=== PATIENT | male | born 1980 | race Caucasian/White ===

== ENCOUNTER 2024-12-02 01:16 | Inpatient (IN) | payer BC ==
[~2024-12-02] VITALS: Ht 172.7 cm; Wt 78.8 kg
--- NOTE | 2024-12-02 01:30 | Physician Documentation ---
History of Present Illness ~ General Chief Complaint: General Stated Complaint: TRANSFER Time Seen by MD: 01:30 History of Present Illness Initial Comments Patient presents to the emergency room for evaluation of acute kidney injury. Baseline kidney indices reported to be a creatinine of a proximally one that has found to have a creatinine of 4.5 today. He was recently placed on some Bactrim that has also started injection IVIG for common variable immunodeficiency. Medication Reconciliation Allergies: Coded Allergies: azithromycin (Verified Allergy, Severe, HIVES, 12/02/24) Review of Systems ROS All review of systems negative except as per HPI Physical Exam Physical Exam Vital Signs: Temperature: 97.6, Source: Temporal, Heart Rate: 80, Respiratory Rate: 18, BP: 133/79, Pulse Oximetry: 99, Weight: 78.800 Oxygen Flow Rate: 0 Physical Exam General: Patient is awake, alert, oriented x4 in no acute distress and well appearing.~ Head: Normocephalic and atraumatic. Eyes: Conjunctival normal. EOMI. PERRL. ENT: Mucous membranes moist. Neck: Supple, trachea is midline. Chest: Clear to auscultation bilaterally without rales, rhonchi, or wheezes. There is no accessory muscle use or retractions. Cardiac: RRR without murmurs, gallops, or rubs. Abd: Soft, nondistended, nontender, with normoactive bowel sounds. No guarding, rebound, or rigidity. Progress Results/Orders Results/Orders Orders - FRANCISCO SMITH MD Urinalysis, Cult If Indicated (12/02/24 01:26) Hcg, Ur Ql (12/02/24:26) BMP (12/02/24 01:26) Lipase (12/02/24:26) CMP (12/02/24 01:26) Page Hospitalist (12/02/24 01:55) Fill Out Med Reconciliation (12/02/24 01:55) Hgb A1c (12/02/24 02:12) Lipid Panel (12/02/24 02:12) MG (12/02/24 02:12) Osmolality (12/02/24 02:12) PBNP (12/02/24 02:12) PHOS (12/02/24 02:12) Completed Orders - FRANCISCO SMITH MD Cbc/Diff (12/02/24 01:26) Vital Signs 12/02/24 12/02/24 01:19 01:38 Temp 97.6 Pulse 80 Resp 18 14 B/P (MAP) 133/79 Pulse Ox 99 O2 Flow Rate 0 Laboratory Tests Test 12/02/24 02:12 White Blood Count 2.4 L Red Blood Count 2.85 L Hemoglobin 8.2 L Hematocrit 23.9 L Mean Corpuscular Volume 84.0 Mean Corpuscular Hemoglobin 28.9 Mean Corpuscular Hemoglobin Concent 34.4 Red Cell Distribution Width 16.5 H Platelet Count 78 L Mean Platelet Volume 7.7 Neutrophils (%) (Auto) 62.9 Lymphocytes (%) (Auto) 24.1 Monocytes (%) (Auto) 11.4 Eosinophils (%) (Auto) 1.1 Basophils (%) (Auto) 0.5 Neutrophils # (Auto) 1.5 L Lymphocytes # (Auto) 0.6 L Monocytes # (Auto) 0.3 Eosinophils # (Auto) 0.0 Basophils # (Auto) 0.0 CBC Comment Sodium Level 140 Potassium Level 4.3 Chloride Level 105 Carbon Dioxide Level 28.2 Anion Gap 7 L Blood Urea Nitrogen 51 H Creatinine 4.65 H Estimated GFR/1.73 m2 10 BUN/Creatinine Ratio 11.0 Glucose Level 113 H Calcium Level 10.4 H Total Bilirubin 0.4 Aspartate Amino Transf (AST/SGOT) 17 Alanine Aminotransferase (ALT/SGPT) 32 Alkaline Phosphatase 132 H Total Protein 5.5 L Albumin 3.0 L Globulin 2.5 L Albumin/Globulin Ratio 1.2 Lipase 38 Chemistry Comments Medical Decision Making Additional information obtaine: old records Findings Patient presents to the emergency room as a transfer from [facility] for acute kidney injury. That has thought that his kidney injury is secondary to IVIG which she started recently. I have spoken with mail handler equipment operator, Dr. Yousif, who is aware of patient. Differential Diagnosis Medication reaction, acute kidney injury, dehydration, toxic ingestion Departure Admitted to Inpatient Unit: yes, to hospitalist Impression: Primary Impression: Acute kidney injury Additional Impression: Common variable immunodeficiency (CVID) Condition: Guarded Referrals: NO PRIMARY CARE PROVIDER (PCP) Signature Scribe Signature: No scribe Attestation: The note accurately reflects work and decisions made by me.Francisco Smith MD 12/02/24 01:55 FRANCISCO SMITH MD Dec 02, 2024 01:30
[2024-12-02 02:30] LABS: MEAN PLATELET VOLUME 7.7 FL (7.4-10.4); RED CELL DISTRIBUTION WIDTH 16.5 % (11.5-14.5)
[2024-12-02 02:55] LABS: CREATININE 4.65 MG/DL (0.40-0.90); TOTAL CARBON DIOXIDE 28.2 MMOL/L (24-32); eCRCL 15 ML/MIN; eGFR 10 ML/MIN
[2024-12-02] MEDS ORDERED: magnesium sulf-water 4G/100mL 100 ML IV PRN (03:30)
[2024-12-02] MEDS ORDERED: potassium Cl 40MEQ/1/2NS 520ml 520 ML IV PRN (03:30)
[2024-12-02] MEDS: normal saline 1000ml 1,000 ML IV SCH (03:30)
[2024-12-02] MEDS ORDERED: ondansetron/PF 4mg/2ml inj IV PRN (03:30)
[2024-12-02] MEDS: normal saline 1000ml 1,000 ML IV ONE (03:30)
[2024-12-02] MEDS ORDERED: potassium Cl 20 mEq SR tablet PO PRN ×2 (03:30)
[2024-12-02] MEDS ORDERED: magnesium Cl slow-release 64mg tablet PO PRN (03:30)
[2024-12-02] MEDS ORDERED: magnesium sulf-water 2g/50mL 50 ML IV PRN (03:30)
[2024-12-02] MEDS ORDERED: magnesium hydroxide 30ml (MOM) UD suspension PO PRN (03:30)
[2024-12-02] MEDS ORDERED: mag hydrox/Alum hydrox/simeth 30ml oral suspension PO PRN (03:30)
--- NOTE | 2024-12-02 03:48 | HISTORY AND PHYSICAL-Residence ---
History & Physical Providers to CC Resident Creating Document: RANDAL BARAKAT, RES CC: CL HENRY MD ~ History of Present Illness Reason for Admit\Complaint: Acute kidney injury History of Present Illness 44-year-old male patient with past history of common variable immunodeficiency, splenomegaly, pancytopenia, diffuse lymphadenopathy and GLILD(Granulomatous Lymphocytic Interstitial Lung Disease), presented to the ED after critical increase in his creatinine as per recent lab report. Creatinine was elevated 4.65 post IgG transfusion one week ago. As per patient's history and reports from [facility] Patient stated that all this started about 10 years ago when he noticed splenomegaly went to [facility] where he was noted to have severely low platelet count. They did a full workup and suspected Hodgkin's lymphoma but was not confirmed. 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 Imaging was done which revealed lymphadenopathy and splenomegaly Due to suspicion for potential Hodgkin's lymphoma PET scan was performed.Lung biopsy was performed in July 2024 which was negative for cancer and silicosis. Patient has a history of hypogammaglobulinemia with low IgG IgA and IgM levels, specific antibody testing and flow cytometry to evaluate lymphocyte subsets were performed and the patient was consistent with granulomatous lymphocytic interstitial lung disease patient was started on a prednisone taper for 4-8 weeks with Bactrim for Pneumocystis prophylaxis and repeat CT was planned. Patient stated that he experiences fluctuating splenomegaly associated with dizziness and nausea particularly when the spleen is enlarged. Patient was initiated on IgG transfusions for his hypogammaglobulinemia received his 1st transfusion one week ago this was for about 6 hours and a repeat kidney function tests post that showed a elevated creatinine Patient also history of thrombocytopenia and bruising he associates with splenomegaly. Patient also stated that he does feel significant fatigue. Reports gathered from [place], [place]: 10/20/2024 CBC with differential notable for mild anemia hemoglobin of 11.5, absolute lymphocyte count decreased to 840, platelet count 62. Flow cytometry shows decrease CD3 cells, decreased absolute NK, B-cells, IgA reduced at 17, IgG decreased at 375, IgM decreased at 34. IgE undetectable. CH 50 normal, C3 and C4 normal Pulmonary function test: FEV1 reduced at 68% of predicted. FEV1 by FVC ratio reduced at 81% of predicted(65%). Diffusion capacity mildly reduced at 72%. We will spirometry consistent with mild obstruction with a significant response to bronchodilators with an increase of 260 mL in the FEV1. Exhaled nitric oxide normal. Patient is currently following up with [facility], he has a heme oncologist in [place] as well for his transfusion. 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 No sore throat, epistaxis, tinnitus Cardiovascular: No chest pain/discomfort, palpitations, syncope. no pedal edema Respiratory: No sob, cough,hemoptysis Gastrointestinal: No abdominal pain, nausea, vomiting. No diarrhea, melena. Genitourinary: No frquency, urgency, incontinence, nocturia. No dysuria, hematuria Musculoskeletal: Normal, no pains Endocrine: No fatigue, polydipsia, polyuria. No heat or cold intolerance Neurologic: No headache, vertigo. No weakness, numbness or tingling of extremities Psychiatric: No hallucinations/delusions, no anhedonia, no suicidal ideation Hematologic: No bruises Exam Vitals: Vital Signs Date Time Temp Pulse Resp B/P (MAP) Pulse Ox O2 Delivery O2 Flow Rate FiO2 12/02/24 01:38 14 12/02/24 01:19 97.6 80 99 0 General: General: Awake, oriented to person, place and time HEENT: Conjunctive are pale, sclerae clear, no icterus, pupil is equal in both sides, reactive to light, no ear discharge, no pharyngeal erythema or an edema. Neck: Supple, no JVD, no lymphadenopathy and thyromegaly. Chest: Decreased air entry in both lung, no breath sounds heard in right basilar region, no additional sounds no rhonchi no wheezing at the moment. Multiple scar noted on right side of the chest post surgical resection of lung Cardiovascular: S1-S2 regular sinus rhythm and, regular rate, no gallops, no rubs, no murmurs Abdomen: Splenomegaly noted. No visible peristalsis, Bowel sounds present on auscultation, soft, no tenderness, no guarding, no rigidity. Extremities: No obvious deformities, no pitting edema bilaterally, capillary refill intact, peripheral pulsations are intact on both sides. Nicotine stained fingertips Neurologic: Mental status: alert and conscious, oriented to place, person and time, preserved memory, normal speech. Cranial nerves I-XII: Normal. Motor system: Preserved power, coordination, no evidenced involuntary movements, strength 5/5 in four extremities. 2+ deep tendon reflexes in biceps, triceps, quadriceps. Negative Babinski. Cerebellar: No nystagmus, dysdiadochokinesia, normal [id number] testing. Musculoskeletal: No joint swelling, deformities, inflammations, and no scoliosis and back tenderness Skin: Warm and dry. Dry oral mucosa. Diagnostic Data Last Recorded Lab Results: 12/02/2421112/02/24211 Counseling Services Smoking & Tobacco Cessation: 3-10 Minutes (Discussed smoking cessation with the patient including the risk continued smoking with the patient including: lung cancer, stroke, heart attack, poor wound healing, increase in facial drinking, risk of MRSA skin infections.) Advance Care Planning Advanced Care plannin - 30 Minutes (I spent 17 minutes discussing advanced care planning/resuscitative methods patient decided he wanted to be full code) Additional Plan Acute kidney injury most likely intrarenal 2/2 IgG transfusion/Bactrim use Patient's creatinine is elevated 4.65 post IgG transfusion for his common variable immunodeficiency one week ago Prior to this patient was also on Bactrim for the last one week,plan is to change to atovaquone as per recomendations from [facility]. With respect to IV IgG therapy patient has requested his insurance for an approval of SQ IgG Initiated the patient on 1 L normal saline bolus and 100 mL/hour normal saline Ordered urine lytes, renal ultrasound Strict input and output monitoring As per ED physician Luis, executive personal assistant Dr. Yousif is aware of the patient Nephrology consult in the a.m. Common variable immunodeficiency-GLILD: Patient has been initiated on prednisone taper 20 mg for 15 days, Patient did not have his prednisone dose yesterday, please continue prednisolone once med rec is done Patient has mild shortness of breath for which he uses Symbicort inhaler Continue Symbicort inhaler 80/4.5, two puffs every 4 hours max 12 puffs per day(has a recommended by his deputy court clerk) once med rec is done Thrombocytopenia with splenomegaly Possibly secondary to platelet sequestration Patient has intermittent splenomegaly with thrombocytopenia Continue to monitor platelet count and bruising Pancytopenia Possibly secondary to hypersplenism Hemoglobin 8.2, RBC 2.85, WBC 2.4 Continue to closely monitor possible transfusion if hemoglobin drops below seven Hypertension New patient's home medication lisinopril 5 mg once med rec is done Code Status: Full code DVT Prophylaxis: SCD Lines/Tubes: PIV Nutrition: Renal diet PT:yes Prognosis: Guarded Disposition: Follow up with urine lytes, nephrology consult in the a.m. patient recently got blood workup done from [facility], please obtain those if possible Randal Barakat MD Internal medicine resident,PGY-1 Plan reviewed with bedside team. Patient seen through remote audiovisual assessment through HIPAA compliant setup. All labs, flowsheets, and images reviewed Cumulative nonprocedural care time spent in directed patient care = 30 min Date of Service: Dec 02, 2024 Billing Provider: CL HENRY MD, JAHNAVI, RES Dec 02, 2024 03:48 CL HENRY MD Dec 02, 2024 07:36
[2024-12-02] MEDS ORDERED: morphine 4 MG/ML inj SYRINge IV PRN (03:50)
[2024-12-02 04:05] LABS: INR 1.0 INR
[2024-12-02 04:11] LABS: APTT 22 SECONDS (22-32)
[2024-12-02 04:15] LABS: OSMOLALITY 309 MOSM/K (280-300)
[2024-12-02 04:26] LABS: CHOL/HDL RATIO 6.2 (0.00-4.99); LDL CHOLESTEROL 108 MG/DL (50-100); PHOSPHORUS 5.3 MG/DL (2.3-4.5); PRO BRAIN NATRIURETIC PEPTIDE 233 PG/ML (0-125)
[2024-12-02] MEDS ORDERED: PRED5TAB PO (05:22)
[2024-12-02] MEDS ORDERED: PANT40SU2 PO (05:24)
[2024-12-02] MEDS ORDERED: LISI2.5T89 PO (05:24)
[2024-12-02] MEDS ORDERED: [UNRECOGNIZED DRUG - CODE] PO (05:27)
[2024-12-02] MEDS: K and/or MAG REPLACEMENT MC SCH (07:33)
[2024-12-02] MEDS: docusate sod 100mg capsule PO SCH (07:33)
--- NOTE | 2024-12-02 08:22 | CONSULTATION REPORT ---
Consult Providers to CC ~ History of Present Illness Primary Medical Doctor: Francisco Smith MD Reason for Admit\Complaint: RONEL, recent IV Ig use History of Present Illness I have been requested to do renal consult for this 44/M that presents with pancytopenia, CLILD (Granulomatous Lymphocytic Interstitial Lung Disease) with CVID (Common Variable Immunodeficiency) that presented to the ED after critical increase in his creatinine as per recent lab report. Creatinine was elevated 4.65 post IgG transfusion one week ago. The spoke to me and the resident PGY-1 working with me, that he had a jump in Serum creatinine to 2.6 as November 13, 2024, earlier it used to 1.2. He received iVIG only after November 14. From the resident's wonderful assimilation of the PMHx: As per patient's history and reports from [facility] Patient stated that all this started about 10 years ago when he noticed splenomegaly when he went to [facility] where he was noted to have severely low platelet count. They did a full workup and suspected Hodgkin's lymphoma but was not confirmed. 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 Imaging was done which revealed lymphadenopathy and splenomegaly. Due to suspicion for potential Hodgkin's lymphoma PET scan was performed.Lung biopsy was performed in July 2024 which was negative for cancer and silicosis. Patient has a history of hypogammaglobulinemia with low IgG IgA and IgM levels, specific antibody testing and flow cytometry to evaluate lymphocyte subsets were performed and the patient was consistent with granulomatous lymphocytic interstitial lung disease patient was started on a prednisone taper for 4-8 weeks with Bactrim for Pneumocystis prophylaxis and repeat CT was planned. Patient stated that he experiences fluctuating splenomegaly associated with dizziness and nausea particularly when the spleen is enlarged. Patient was initiated on IgG transfusions for his hypogammaglobulinemia received his 1st transfusion one week ago this was for about 6 hours and a repeat kidney function tests post that showed a elevated creatinine Patient also history of thrombocytopenia and bruising he associates with splenomegaly. Patient also stated that he does feel significant fatigue. Reports gathered from [place], [place]: 10/20/2024 CBC with differential notable for mild anemia hemoglobin of 11.5, absolute lymphocyte count decreased to 840, platelet count 62. Flow cytometry shows decrease CD3 cells, decreased absolute NK, B-cells, IgA reduced at 17, IgG decreased at 375, IgM decreased at 34. IgE undetectable. CH 50 normal, C3 and C4 normal Pulmonary function test: FEV1 reduced at 68% of predicted. FEV1 by FVC ratio reduced at 81% of predicted(65%). Diffusion capacity mildly reduced at 72%. We will spirometry consistent with mild obstruction with a significant response to bronchodilators with an increase of 260 mL in the FEV1. Exhaled nitric oxide normal. Patient is currently following up with [facility], he has a heme oncologist in [place] as well for his transfusion. 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 Allergies: Coded Allergies: azithromycin (Verified Allergy, Severe, HIVES, 12/02/24) Home Medications Home Medications Active Reported Mepron (Atovaquone) 750 Mg/5 Ml Oral.susp 750 Mg PO DAILY Protonix (Pantoprazole Sodium) 40 Mg Suspdr.pkt 40 Mg PO DAILY Zestril (Lisinopril) 2.5 Mg Tablet 2 Tab PO DAILY 30 Days Prednisone* (Prednisone) 5 Mg Tablet 4 Tab PO DAILY Past Medical History Past Medical History Common variable immune disease Hypertension Diffuse lymphadenopathy Pancytopenia GLILD Past Surgical History Surgical History Comment Right lung basal partial resection Past Social History Social History Comment Patient drinks about six beers a week Patient chews nicotine powder Patient denies any other history of illicit drug use Exam Vitals: Vital Signs Date Time Temp Pulse Resp B/P (MAP) Pulse Ox O2 Delivery O2 Flow Rate FiO2 12/02/24 06:53 63 18 104/61 (75) 100 0 12/02/24 01:19 97.6 General: Vital Signs: As above General: Normal body habitus, no acute distress. Skin: No rashes, lumps, ulcers, blisters, purpura or petechiae HEENT: Anicteric sclera, LOTTIE Neck: Supple and nontender without enlargement of the thyroid, or lymphadenopathy. Chest: Normal size and shape, no tenderness, CTA bilaterally Heart: Regular. No jugular venous distention, S1 and S2 heard , no gallop Abdomen: Soft and non tender no organomegaly,BS+ Extremities: No pedal edema Neuro: Nonfocal. Diagnostic Data Last Recorded Lab Results: 12/02/2421112/02/24211 Diagnostic Data: Laboratory Tests Test 12/02/24 02:12 Prothrombin Time 10.3 SECONDS (9.0-12.0) INR International Normalized Ratio 1.0 INR Activated Partial Thromboplast Time 22 SECONDS (22-32) Coagulation Comments Problems: (1) Pancytopenia Assessment & Plan: check ANC and report to [facility] to keep the oncology team involved, due to the nature of his medical disease and for academic interest for residents' learning purposes. (2) Common variable immunodeficiency (CVID) Status: Acute Assessment & Plan: By definition: 'Markedly reduced serum concentrations of immunoglobulin G (IgG), in combination with low levels of immunoglobulin A (IgA) and/or immunoglobulin M (IgM) Poor or absent response to immunizations An absence of any other defined immunodeficiency state (3) Acute kidney injury Status: Acute Assessment & Plan: Common risk factors for RONEL with IV IG are: per consensus -Age greater than 65 years -Preexisting chronic kidney disease (CKD; creatinine clearance <60 mL/min) -Diabetes mellitus -Higher doses of IVIG -Hypovolemia -Concomitant use of nephrotoxic agents -Very high titers of rheumatoid factor will check the RA factor if it is positive in him. hydration is in progress. supportive care. No further ivig. [facility] needs to be involved one on one for any guidelines that needs to be followed for his CVID. Meanwhile, stat repeat renal panel and UA now to assess for any ATN from sucrose related tubular damage from the iVIG. DAE LUJAN MD Dec 02, 2024 08:22
[2024-12-02 08:41] LABS: CREATININE 4.43 MG/DL (0.60-1.10); PHOSPHORUS 5.1 MG/DL (2.3-4.5); TOTAL CARBON DIOXIDE 24.5 MMOL/L (24-32); eCRCL 20 ML/MIN; eGFR 14 ML/MIN
[2024-12-02 10:23] LABS: LEUKOCYTE ESTERASE ,URINE NEGATIVE (Neg); NITRITES, URINE NEGATIVE (Neg); OCCULT BLOOD,URINE TRACE-INTACT (Neg)
[2024-12-02 10:28] LABS: UA COLLECTION TYPE CLN CATCH MIDSTREAM
[2024-12-02 10:30] LABS: SQUAMOUS EPITHELIAL CELL,UR FEW /LPF (FEW)
[2024-12-02 10:33] LABS: OSMOLALITY UA 390.0 MOSM/K (50-1400)
[2024-12-02 10:40] LABS: TOTAL PROTEIN,URINE RANDOM 25.7 MG/DL; UA UREA RANDOM 379.0 MG/DL
--- NOTE | 2024-12-02 10:50 | RADIOLOGY REPORT ---
RENAL ULTRASOUND CLINICAL HISTORY: RONEL TECHNIQUE: Multiple grayscale ultrasound images were obtained through the kidneys and urinary bladder. COMPARISON: None FINDINGS: Right kidney: Measures 11.1 x 5.2 x 5.5 cm. No hydronephrosis. Left kidney: Measures 10.3 x 5.6 x 5.8 cm. No hydronephrosis. Urinary bladder: Unremarkable. Prevoid volume is 529 mL Enlarged spleen measuring up to 22 cm. Diffuse heterogeneity of the spleen IMPRESSION: 1. Normal size kidneys without evidence of hydronephrosis. 2. Diffusely heterogeneous markedly enlarged spleen. Correlate with clinical history and labs.
--- NOTE | 2024-12-02 17:59 | CONSULTATION REPORT - RESIDENT ---
Consult Providers to CC Resident Creating Document: ASAD QUEEN RES History of Present Illness Reason for Admit\Complaint: Acute kidney injury History of Present Illness Nephrology consult 44-year-old male patient with past history of common variable immunodeficiency, splenomegaly, pancytopenia, diffuse lymphadenopathy and GLILD(Granulomatous Lymphocytic Interstitial Lung Disease), presented to the ED after critical increase in his creatinine as per recent lab report. Creatinine was elevated 4.65 post IgG transfusion one week ago. Creatinine was elevated 4.65 post IgG transfusion one week ago. As per patient's history and reports from [facility] Patient stated that all this started about 10 years ago when he noticed splenomegaly when he went to [facility] where he was noted to have severely low platelet count. They did a full workup and suspected Hodgkin's lymphoma but was not confirmed. 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 Imaging was done which revealed lymphadenopathy and splenomegaly. Due to suspicion for potential Hodgkin's lymphoma PET scan was performed.Lung biopsy was performed in July 2024 which was negative for cancer and silicosis. Patient has a history of hypogammaglobulinemia with low IgG IgA and IgM levels, specific antibody testing and flow cytometry to evaluate lymphocyte subsets were performed and the patient was consistent with granulomatous lymphocytic interstitial lung disease patient was started on a prednisone taper for 4-8 weeks with Bactrim for Pneumocystis prophylaxis and repeat CT was planned. Patient stated that he experiences fluctuating splenomegaly associated with dizziness and nausea particularly when the spleen is enlarged. Patient was initiated on IgG transfusions for his hypogammaglobulinemia received his 1st transfusion one week ago this was for about 6 hours and a repeat kidney function tests post that showed a elevated creatinine Patient also history of thrombocytopenia and bruising he associates with splenomegaly. Patient also stated that he does feel significant fatigue. Reports gathered from [place], [place]: 10/20/2024 CBC with differential notable for mild anemia hemoglobin of 11.5, absolute lymphocyte count decreased to 840, platelet count 62. Flow cytometry shows decrease CD3 cells, decreased absolute NK, B-cells, IgA reduced at 17, IgG decreased at 375, IgM decreased at 34. IgE undetectable. CH 50 normal, C3 and C4 normal Pulmonary function test: FEV1 reduced at 68% of predicted. FEV1 by FVC ratio reduced at 81% of predicted(65%). Diffusion capacity mildly reduced at 72%. We will spirometry consistent with mild obstruction with a significant response to bronchodilators with an increase of 260 mL in the FEV1. Exhaled nitric oxide normal. Patient is currently following up with [facility], He Follows Hematology and oncologist from [facility] Patient follows ,-[facility] Allergy/immunology and Dr Beltran in Pulmonary clinic Allergies: Coded Allergies: azithromycin (Verified Allergy, Severe, HIVES, 12/02/24) Home Medications Home Medications Active Reported Mepron (Atovaquone) 750 Mg/5 Ml Oral.susp 750 Mg PO DAILY Protonix (Pantoprazole Sodium) 40 Mg Suspdr.pkt 40 Mg PO DAILY Zestril (Lisinopril) 2.5 Mg Tablet 2 Tab PO DAILY 30 Days Prednisone* (Prednisone) 5 Mg Tablet 4 Tab PO DAILY Past Medical History Past Medical History Common variable immune disease Hypertension Diffuse lymphadenopathy Pancytopenia GLILD Past Surgical History Surgical History Comment Right lung basal partial resection Past Social History Social History Comment Social History Comment Patient drinks about six beers a week Patient chews nicotine powder Patient denies any other history of illicit drug use ROS ROS Constitutional: No fever, dizziness, weakness noted, no decrease in appetite HEENT: Normal vision. No sore throat, epistaxis, tinnitus Cardiovascular: No chest pain/discomfort, palpitations, syncope. no pedal edema Respiratory: No sob, cough,hemoptysis Gastrointestinal: No abdominal pain, nausea, vomiting. No diarrhea, melena. Genitourinary: No frquency, urgency, incontinence, nocturia. No dysuria, hematuria Musculoskeletal: Normal, no pains Endocrine: No fatigue, polydipsia, polyuria. No heat or cold intolerance Neurologic: No headache, vertigo. No weakness, numbness or tingling of extremities Psychiatric: No hallucinations/delusions, no anhedonia, no suicidal ideation Hematologic: No bruises Exam Vitals: Vital Signs Date Time Temp Pulse Resp B/P (MAP) Pulse Ox O2 Delivery O2 Flow Rate FiO2 12/02/24 13:41 72 18 131/75 (93) 100 0 12/02/24 01:19 97.6 General: General: Awake, oriented to person, place and time HEENT: Conjunctive are pale, sclerae clear, no icterus, pupil is equal in both sides, reactive to light, no ear discharge, no pharyngeal erythema or an edema. Neck: Supple, no JVD, no lymphadenopathy and thyromegaly. Chest: Decreased air entry in both lung, no breath sounds heard in right basilar region, no additional sounds no rhonchi no wheezing at the moment. Multiple scar noted on right side of the chest post surgical resection of lung Cardiovascular: S1-S2 regular sinus rhythm and, regular rate, no gallops, no rubs, no murmurs Abdomen: Splenomegaly noted. No visible peristalsis, Bowel sounds present on auscultation, soft, no tenderness, no guarding, no rigidity. Extremities: No obvious deformities, no pitting edema bilaterally, capillary refill intact, peripheral pulsations are intact on both sides. Nicotine stained fingertips Neurologic: Mental status: alert and conscious, oriented to place, person and time, preserved memory, normal speech. Cranial nerves I-XII: Normal. Motor system: Preserved power, coordination, no evidenced involuntary movements, strength 5/5 in four extremities. 2+ deep tendon reflexes in biceps, triceps, quadriceps. Negative Babinski. Cerebellar: No nystagmus, dysdiadochokinesia, normal earcnq-gq-qwbf testing. Musculoskeletal: No joint swelling, deformities, inflammations, and no scoliosis and back tenderness Skin: Warm and dry. Dry oral mucosa. Diagnostic Data Last Recorded Lab Results: 12/02/24 0212 12/02/24 0821 Diagnostic Data: Laboratory Tests Test 12/02/24 02:12 Prothrombin Time 10.3 SECONDS (9.0-12.0) INR International Normalized Ratio 1.0 INR Activated Partial Thromboplast Time 22 SECONDS (22-32) Coagulation Comments Additional Plan Acute kidney injury on CKD Patient is creatinine is 1.28 last year, 1.11 on June 05, on November 13 before in infusion it was 2.83 Patient got infusion on November 15 and today creatinine is 4.65 Patient's creatinine is elevated 4.65 post IgG transfusion for his common variable immunodeficiency one week ago Prior to this patient was also on Bactrim for the last one week,plan is to change to atovaquone as per recomendations from [facility]. With respect to IV IgG therapy patient has requested his insurance for an approval of SQ IgG Renal ultrasound- Normal size kidneys without evidence of hydronephrosis. Increase normal saline 125 cc/hour Strict input and output monitoring Explained patient and his on-call about having possibility of granulomatous kidney disease in view of patient's history, we will recommend biopsy if patient condition does not improve with IV fluid Common variable immunodeficiency-GLILD: Started prednisone 10 mg p.o. daily Follow up with immunology report Thrombocytopenia with splenomegaly Pancytopenia Hypertension Manage patient according to primary caregiver Code Status: Full code DVT Prophylaxis: SCD Lines/Tubes: PIV Nutrition: Renal diet PT:yes Prognosis: Guarded Date of Service: Dec 02, 2024 Billing Provider: DAE LUJAN MD, SATISH, RES Dec 02, 2024 17:59
[2024-12-02 21:15] VITALS: BP 147/87; PULSE 74; RESP 18; TEMP 97.9; O2SAT 100
[2024-12-02 22:00] VITALS: RESP 18; O2SAT 97
[2024-12-03] VITALS (8 sets, daily range): BP systolic 130–138; BP diastolic 69–81; PULSE 64–75; RESP 16–18; TEMP 97.9–98.2; O2SAT 98–100
[2024-12-03 03:18] LABS: MEAN PLATELET VOLUME 8.4 FL (7.4-10.4); RED CELL DISTRIBUTION WIDTH 16.9 % (11.5-14.5)
[2024-12-03 03:27] LABS: CREATININE 3.57 MG/DL (0.60-1.10); TOTAL CARBON DIOXIDE 24.4 MMOL/L (24-32); eCRCL 25 ML/MIN; eGFR 19 ML/MIN
[2024-12-03 05:27] LABS: EOSINOPHILS % (MANUAL) 1.0 % (0-6); LYMPHOCYTES % (MANUAL) 20.0 % (21-51); MONOCYTES % (MANUAL) 9.0 % (2-12); NEUTROPHILS % (MANUAL) 70.0 % (42-75); PLATELET ESTIMATE DECREASED
[2024-12-03] MEDS ORDERED: levoFLOXACIN-Levaquin 500mg/D5 100 ML IV ONE (08:00)
[2024-12-03] MEDS: ringers solution, lacted 1,000 ML IV ONE (16:53)
--- NOTE | 2024-12-03 18:01 | PROGRESS NOTE ---
Progress Note Dictate Providers to CC ~ Central Line/PICC still needed: No Vanegas Indications Met/Not Met: F/C Indications Not Met Antibiotic Ordered?: N/A Subjective Subjective The patient with CVID, has pre exisiting Logan, prior to the IVIg. Apparently IG was given without sucrose over there. REsident verified with the specialist today and reported to me. Creatinine was indeed 2.6 prior to the IG. Today the creatinine is better than yesterdya, down to 3.5 from 4.7. continue hydration. uA is completely inactive. I am not too tempted to do renal biopsy at this time yet. CMV PCR weakly positive. I have requested ID consult to and patient agrees to follow up with him from now on. He remains pancytopenic. ANC check. Objective Vitals Vital Signs Date Time Temp Pulse Resp B/P (MAP) Pulse Ox O2 Delivery O2 Flow Rate FiO2 12/03/24 11:27 97.9 75 16 135/81 (99) 99 Room Air 12/03/24 08:30 0.0 Lab Results: 12/03/24 0238 12/03/24 0238 Objective Vital Signs: As above General: Normal body habitus, no acute distress. Skin: No rashes, lumps, ulcers, blisters, purpura or petechiae HEENT: Anicteric sclera, LOTTIE Neck: Supple and nontender without enlargement of the thyroid, or lymphadenopathy. Chest: Normal size and shape, no tenderness, CTA bilaterally Heart: Regular. No jugular venous distention, S1 and S2 heard , no gallop Abdomen: Soft and non tender splenomegaly noted Extremities: No pedal edema Neuro: Nonfocal. Coagulation Studies Laboratory Tests Test 12/02/24 02:12 Prothrombin Time 10.3 SECONDS (9.0-12.0) INR International Normalized Ratio 1.0 INR Activated Partial Thromboplast Time 22 SECONDS (22-32) Coagulation Comments Advance Care Planning Advanced Care plannin - 30 Minutes Problem\Assessment\Plan Problems/Diagnosis: (1) Pancytopenia Assessment & Plan: report to [facility] to keep the oncology team involved, due to the nature of his medical disease and for academic interest for residents' learning purposes. He has chronically been pancytopenic. I have requested to consult fo the CMV pcr positivity and to establish with him for ID care in future. (2) Common variable immunodeficiency (CVID) Assessment & Plan: chronic, await Ig levels. sent them off. recent IG administration with existing LOGAN prior to that but was given without sucrose base, I am told (3) Acute kidney injury Assessment & Plan: hydration is working so far. UA is completely inactive. Will continue to hydrate. REnal US is negative for any hydronephrosis. continue with renal diet for now. NO NSAIDS. NO magnesium or aluminum based antacids or laxatives. ? pre renal azotemia from volume depleted state. He has already been on Prednisone priot to presentation. NO suspicion for acute interstitial nephritis at this point. DAE LUJAN MD Dec 03, 2024 18:01
--- NOTE | 2024-12-03 18:29 | RADIOLOGY REPORT ---
Indication: sepsis Technique: CT axial images of the chest abdomen and pelvis are obtained with intravenous contrast. Coronal and sagittal reformats were obtained. Radiation Dose Information: CTDI volume is 26 mGy. Dose-length product is 2055 mGy*cm Comparison: None FINDINGS: The trachea is patent. No pneumothorax. Multifocal pulmonary airspace consolidation/ground-glass disease /nodular airspace disease most pronounced within the bilateral lower lobes The heart is normal in size. Coronary artery calcification disease. Tiny bilateral pleural effusions. No supraclavicular or axillary lymphadenopathy Adrenal glands unremarkable. Spleen enlarged measuring 17 cm AP by 24 cm craniocaudal. Pancreas, liver unremarkable in shape. No CT evidence for cholelithiasis. No hydronephrosis/ nephrolithiasis. Stomach is partially distended. Small bowel loops are normal in caliber. Moderate volume stool in the colon. Normal appendix. Abdominal aortic atherosclerotic disease. Retroperitoneal lymph nodes measuring up to 2 cm. Bladder partially distended. No free pelvic fluid. Right inguinal lymph node measuring 1.2 cm. Jhvr-vk-dhdhdszb bilateral sacroiliac degenerative joint disease. Jssn-bt-klxeutpt thoracolumbar degenerative disc disease. Sbbb-ko-xtxhlydy thoracic degenerative disc disease. IMPRESSION: Multifocal pulmonary airspace consolidation/ground-glass disease/nodular airspace disease, possibly representing infection/pneumonia with other considerations including infectious, inflammatory etiologies. Follow-up to resolution to exclude any type of underlying pulmonary nodule. Massive splenomegaly. There is also retroperitoneal lymphadenopathy. Correlate for lymphoma/ malignancy, other infectious / inflammatory etiologies. Atherosclerotic, coronary artery calcification disease. Tiny bilateral pleural effusions. Other findings as described
--- NOTE | 2024-12-03 18:36 | PROGRESS NOTE ---
Daily Progress Note Providers to CC ~ feels better today, resting comfortably in the bed Central Line/PICC still needed: No Vanegas-Non Protocol Vanegas Indications Met/Not Met: F/C Indications Not Met Antibiotic Timeout Antibiotic Ordered?: Yes MRSA Education MRSA Education Provided to pt: Yes Subjective As above Objective Vital Signs Date Time Temp Pulse Resp B/P (MAP) Pulse Ox O2 Delivery O2 Flow Rate FiO2 12/03/24 11:27 97.9 75 16 135/81 (99) 99 Room Air 12/03/24 08:30 0.0 Vital signs, stable ,afebrile. Pulse Oximetry reflects adequate oxygenation. General: well developed, well nourished. Awake , alert, and oriented x4, resting comfortably in the bed, in no acute distress . Skin: Warm, dry, no pallor, no rash or petechiae. HEENT: Atraumatic, normocephalic, EOMI, anicteric sclera B; pink conjunctiva; PERRLA, normal oropharynx, moist oral and nasal mucosa. Tympanic membrane , nose , throat clear. Neck: Trachea midline. Supple, full range of motion, no JVD, bruit , hepatojugular reflex , lymphadenopathy or masses, or other lesions Cardiac: Regular rhythm, regular rate no murmurs, rubs, or gallops. Normal S1 and S2, no S3 noticed. PMI is normal. Respiratory: Equal breath sounds bilaterally, no tachypnea; lungs clear to auscultation bilaterally, no wheezing ,rub or rales, or crackles. Chest wall is symmetric and without deformity. No signs of trauma. Chest wall is nontender. No signs of respiratory distress. Resonance is normal upon percussion bilaterally. Gastrointestinal: Abdomen symmetric, non-distended, soft, non-tender, normal bowel sounds x4 quadrant, normoactive, no hepatosplenomegaly , no masses , no bruit, no flank pain bilaterally. No voluntary guarding, rebound, or rigidity. No tenderness to percussion. No pulsatile masses. Equal femoral pulses. No Senior's sign or McBurney point tenderness. Back; no CVA tenderness bilaterally, no deformities. Neck and back are without deformity as well. No tenderness noted on palpation of the spinous processes. Spinous processes are midline. Cervical, thoracic, and lumbar paraspinal muscles are not tender and are without spasm. : normal external genitalia, without lesions, swelling, masses or tenderness. Musculoskeletal: Extremities, normal range of motion, non-tender, muscle strength 5/5 x 4. Negative Homans signs bilaterally on lower extremity. Distal pulses full symmetrical, no clubbing, cyanosis , edema. Neurological: Speech is clear, alert, and oriented x 4. No motor or sensory deficit, deep tendon reflexes normal, cerebellar intact. Cranial nerves II-XII intact. Psych: Alert and or appropriate, normal affect. Vascular: Good distal pulses, which are equal x4; capillary refill less than 2 seconds. Lymphatic, no lymphadenopathy. Result Diagram: 12/03/24 0238 12/03/248 Coagulation Studies Laboratory Tests Test 12/02/24 02:12 Prothrombin Time 10.3 SECONDS (9.0-12.0) INR International Normalized Ratio 1.0 INR Activated Partial Thromboplast Time 22 SECONDS (22-32) Coagulation Comments Problem\Assessment\Plan Plan Bilateral pneumonia, community-acquired mixed terri Gram-positive Gram-negative Present on admission Acute kidney injury most likely intrarenal 2/2 IgG transfusion/Bactrim use Patient's creatinine is elevated 4.65 post IgG transfusion for his common variable immunodeficiency one week ago Prior to this patient was also on Bactrim for the last one week,plan is to change to atovaquone as per recomendations from [facility]. With respect to IV IgG therapy patient has requested his insurance for an approval of SQ IgG Initiated the patient on 1 L normal saline bolus and 100 mL/hour normal saline Ordered urine lytes, renal ultrasound Strict input and output monitoring As per ED physician Luis, fibre cement moulder Dr. Yousif is aware of the patient Nephrology consult in the a.m. 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) once med rec is done Thrombocytopenia with splenomegaly Possibly secondary to platelet sequestration Patient has intermittent splenomegaly with thrombocytopenia Continue to monitor platelet count and bruising Pancytopenia Possibly secondary to hypersplenism Hemoglobin 8.2, RBC 2.85, WBC 2.4 Continue to closely monitor possible transfusion if hemoglobin drops below seven Hypertension New patient's home medication lisinopril 5 mg once med rec is done Code Status: Full code DVT Prophylaxis: SCD Lines/Tubes: PIV Nutrition: Renal diet PT:yes Prognosis: Guarded Sepsis Screening Reassessment Date: Dec 03, 2024 Date of Service: Dec 03, 2024 Billing Provider: JEFERSON MAURICIO MD Common Visit Codes: [id number] INP/OBS CARE(HIGH) JEFERSON MAURICIO MD Dec 03, 2024 18:36
[2024-12-03] MEDS: ipratropium/albuterol 3ml nebule NEB SCH (19:00)
[2024-12-03 19:15] LABS: % IRON SATURATION 19 % (11-46)
[2024-12-03] MEDS: HYDROcodone/acetaminophen 5mg/325mg tablet PO PRN (21:57)
[2024-12-03] MEDS: EPOETIN ALFA-EPBX 20,000 UNIT/ML 1 ML MDV SQ ONE (21:59)
[2024-12-04 03:36] VITALS: PULSE 68; RESP 16; O2SAT 100
[2024-12-04 03:45] VITALS: PULSE 69; RESP 16
[2024-12-04 06:00] VITALS: BP 146/87; PULSE 77; RESP 18; TEMP 98.5; O2SAT 100
[2024-12-04 06:07] LABS: MEAN PLATELET VOLUME 8.3 FL (7.4-10.4); RED CELL DISTRIBUTION WIDTH 16.6 % (11.5-14.5)
[2024-12-04 06:31] LABS: CREATININE 3.43 MG/DL (0.60-1.10); TOTAL CARBON DIOXIDE 23.6 MMOL/L (24-32); eCRCL 26 ML/MIN; eGFR 19 ML/MIN
[2024-12-04 06:43] LABS: BANDS% (MANUAL) 2.0 % (0-10); LYMPHOCYTES % (MANUAL) 24.0 % (21-51); MONOCYTES % (MANUAL) 8.0 % (2-12); NEUTROPHILS % (MANUAL) 66.0 % (42-75); PLATELET ESTIMATE DECREASED
[2024-12-04 06:44] LABS: ELLIPTOCYTES FEW
[2024-12-04 07:29] VITALS: PULSE 70; RESP 16; O2SAT 100
[2024-12-04 07:38] VITALS: PULSE 70; RESP 16
[2024-12-04 10:00] VITALS: BP 130/77; PULSE 76; RESP 12; TEMP 98; O2SAT 99
[2024-12-04 11:12] LABS: HBSAG SCREEN Negative (Negative); HEP B CORE AB, IGM Negative (Negative); HEP B CORE AB, TOT Negative (Negative)
--- NOTE | 2024-12-04 11:59 | PROGRESS NOTE- Residence ---
Progress Note - Resident Providers to CC Resident Creating Document: BROWN MURDOCK, RES ~ Central Line/PICC still needed: No Vanegas-Non Protocol Vanegas Indications Met/Not Met: F/C Indications Not Met Antibiotic Timeout Antibiotic Ordered?: Yes Subjective Seen and examined patient at bedside, his creatinine is very mildly improving. consulted in View of patient ongoing CMV Explained patient and at bedside about Renal Biopsy Objective Vital Signs Date Time Temp Pulse Resp B/P (MAP) Pulse Ox O2 Delivery O2 Flow Rate FiO2 12/04/24 08:00 Room Air 0.0 12/04/24 07:38 70 16 12/04/24 07:29 100 21 12/04/24 06:00 98.5 146/87 (106) Result Diagram: 12/04/24 0501 12/04/24 0501 GENERAL: Awake, alert, oriented. No acute distress. HEENT : Normocephalic, atraumatic, pupils equal and reactive to light, extraocular movements intact, no scleral conjunctival pallor , nasal mucosa is moist,oral mucosa moist. NECK: neck is supple, trachea midline, no lymphadenopathy, no thyromegaly, no JV distention RESPIRATORY: Chest expansion equal bilaterally, bronchial breath sounds , no wheezes, or rhonchi. CARDIOVASCULAR: S1 and S2 heard, no murmurs, no rubs, or gallops ABDOMEN: Soft, nontender, distended, bowel sounds present and normoactive. Splenomegaly, no palpable mass, no rebound or guarding NEUROLOGICAL: Alert, oriented, normal memory, speech is normal Cranial nerves II-XII- intact Motor strength 5/5 Sensation-intact in all extremities Reflexes +2 and symmetrical Coordination is intact EXTREMITIES: Edema, peripheral pulses, deformities Psychiatric:Appropriate mood and affect Coagulation Studies Laboratory Tests Test 12/02/24 02:12 Prothrombin Time 10.3 SECONDS (9.0-12.0) INR International Normalized Ratio 1.0 INR Activated Partial Thromboplast Time 22 SECONDS (22-32) Coagulation Comments Advance Care Planning Advanced Care plannin - 30 Minutes Assessment Assessment Pancytopenia Patient's absolute neutrophil count is 1.2-mild neutropenia, platelet count 65 K was consulted for the CMV pcr positivity and to establish with him for ID care in future. Patient is currently on antibiotics Patient is currently on Neutropenic precautions Common variable immunodeficiency (CVID) Follow up with immunoglobulin levels Patient recently received IVIG on November 13 without sucrose base Acute kidney injury Patient creatinine is mildly improved with hydration, his urine analysis ruled out UTI, hydration is working so far. UA is completely inactive. Patient is currently on IV normal saline at 75 cc/hour. Renal ultrasound US is negative for any hydronephrosis. Avoid NSAIDS, magnesium or aluminum based antacids or laxatives. We discussed with the patient and his the possibility of pursuing a kidney biopsy due to his elevated creatinine in the setting of CVD with multiorgan involvement. The procedure, including its risks and benefits was explained in clear and understandable words. Patient and his expressed understanding and agreed to proceed with renal biopsy at another facility Hypertension Interstitial lung disease Manage according to Primary care givers plan Brown Murdock PGY1-Internal Medicine Resident Nephrology attending: Patient was seen and exxamined with resident. I discussed with that is consulting form ID perspective. He seems to have the lung nodules that appers to be due to his CVID, and he has had them all along, per his , and has had biopsies in the past. his CMV pcr titers are very weakly positive. He was on Bactrim prior to presentation, and his creaitnine was about 2.6 prior to the IG administration His urine appears to be prety bland. His creatinine has come down from 4.7 to 3. 4. I am planning ot get renal biopsy as outpatient at [facility] in a week or two, depending on how his renal function is, after he gets discharged from here today, if agrees. I shall set up a follow up with me in the office. STOP fluid. Dae Lujan MD Date of Service: Dec 04, 2024 Billing Provider: DAE LUJAN MD, SATISH, RES Dec 04, 2024 11:59 DAE LUJAN MD Dec 04, 2024 12:32
--- NOTE | 2024-12-04 19:09 | DISCHARGE SUMMARY ---
Discharge Summary Providers to Feels better today cleared for discharge by fine grader and infectious disease doctor ~ Discharge Summary Assessment Common variable immune disease Hypertension Diffuse lymphadenopathy Pancytopenia GLILD Acute renal failure Chronic kidney disease Admission Diagnosis: CVID,RONEL Admission Diagnosis Comment: Common variable immune disease Hypertension Diffuse lymphadenopathy Pancytopenia GLILD Acute renal failure Chronic kidney disease Hospital Course DATE OF ADMISSION: December 02, 2024 DATE OF DISCHARGE: December 04, 2024 Discharge Diagnosis\Comment: Common variable immune disease Hypertension Diffuse lymphadenopathy Pancytopenia GLILD Acute renal failure Chronic kidney disease Operations\Procedures: Common variable immune disease Hypertension Diffuse lymphadenopathy Pancytopenia GLILD Acute renal failure Chronic kidney disease Consultants: Infectious disease doctor and Nephrology doctor Complications: Non Condition on DC: Stable Discharge Summary: 44-year-old male patient with past history of common variable immunodeficiency, splenomegaly, pancytopenia, diffuse lymphadenopathy and GLILD(Granulomatous Lymphocytic Interstitial Lung Disease), presented to the ED after critical increase in his creatinine as per recent lab report. Creatinine was elevated 4.65 post IgG transfusion one week ago. As per patient's history and reports from [facility] Patient stated that all this started about 10 years ago when he noticed splenomegaly went to [facility] where he was noted to have severely low platelet count. They did a full workup and suspected Hodgkin's lymphoma but was not confirmed. 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 Imaging was done which revealed lymphadenopathy and splenomegaly Due to suspicion for potential Hodgkin's lymphoma PET scan was performed.Lung biopsy was performed in July 2024 which was negative for cancer and silicosis. Patient has a history of hypogammaglobulinemia with low IgG IgA and IgM levels, specific antibody testing and flow cytometry to evaluate lymphocyte subsets were performed and the patient was consistent with granulomatous lymphocytic interstitial lung disease patient was started on a prednisone taper for 4-8 weeks with Bactrim for Pneumocystis prophylaxis and repeat CT was planned. Patient stated that he experiences fluctuating splenomegaly associated with dizziness and nausea particularly when the spleen is enlarged. Patient was initiated on IgG transfusions for his hypogammaglobulinemia received his 1st transfusion one week ago this was for about 6 hours and a repeat kidney function tests post that showed a elevated creatinine Patient also history of thrombocytopenia and bruising he associates with splenomegaly. Patient also stated that he does feel significant fatigue. Reports gathered from [place], [place]: 10/20/2024 CBC with differential notable for mild anemia hemoglobin of 11.5, absolute lymphocyte count decreased to 840, platelet count 62. Flow cytometry shows decrease CD3 cells, decreased absolute NK, B-cells, IgA reduced at 17, IgG decreased at 375, IgM decreased at 34. IgE undetectable. CH 50 normal, C3 and C4 normal Pulmonary function test: FEV1 reduced at 68% of predicted. FEV1 by FVC ratio reduced at 81% of predicted(65%). Diffusion capacity mildly reduced at 72%. We will spirometry consistent with mild obstruction with a significant response to bronchodilators with an increase of 260 mL in the FEV1. Exhaled nitric oxide normal. Patient is currently following up with [facility] he has a heme oncologist in [place] as well for his transfusion. 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 Pulse Oximetry reflects adequate oxygenation. General: well developed, well nourished. Awake , alert, and oriented x4, resting comfortably in the bed, in no acute distress . Skin: Warm, dry, no pallor, no rash or petechiae. HEENT: Atraumatic, normocephalic, EOMI, anicteric sclera B; pink conjunctiva; PERRLA, normal oropharynx, moist oral and nasal mucosa. Tympanic membrane , nose , throat clear. Neck: Trachea midline. Supple, full range of motion, no JVD, bruit , hepatojugular reflex , lymphadenopathy or masses, or other lesions Cardiac: Regular rhythm, regular rate no murmurs, rubs, or gallops. Normal S1 and S2, no S3 noticed. PMI is normal. Respiratory: Equal breath sounds bilaterally, no tachypnea; lungs clear to auscultation bilaterally, no wheezing ,rub or rales, or crackles. Chest wall is symmetric and without deformity. No signs of trauma. Chest wall is nontender. No signs of respiratory distress. Resonance is normal upon percussion bilaterally. Gastrointestinal: Abdomen symmetric, non-distended, soft, non-tender, normal bowel sounds x4 quadrant, normoactive, no hepatosplenomegaly , no masses , no bruit, no flank pain bilaterally. No voluntary guarding, rebound, or rigidity. No tenderness to percussion. No pulsatile masses. Equal femoral pulses. No Senior's sign or McBurney point tenderness. Back; no CVA tenderness bilaterally, no deformities. Neck and back are without deformity as well. No tenderness noted on palpation of the spinous processes. Spinous processes are midline. Cervical, thoracic, and lumbar paraspinal muscles are not tender and are without spasm. : normal external genitalia, without lesions, swelling, masses or tenderness. Musculoskeletal: Extremities, normal range of motion, non-tender, muscle strength 5/5 x 4. Negative Homans signs bilaterally on lower extremity. Distal pulses full symmetrical, no clubbing, cyanosis , edema. Neurological: Speech is clear, alert, and oriented x 4. No motor or sensory deficit, deep tendon reflexes normal, cerebellar intact. Cranial nerves II-XII intact. Psych: Alert and or appropriate, normal affect. Vascular: Good distal pulses, which are equal x4; capillary refill less than 2 seconds. Lymphatic, no lymphadenopathy. *Problems/Diagnosis: (1) Pancytopenia (2) Common variable immunodeficiency (CVID) Status: Acute (3) Acute kidney injury Status: Acute Total Time Spent on D/C: > 30 Minutes Date of Service: Dec 04, 2024 Billing Provider: JEFERSON MAURICIO MD Common Visit Codes: 88990-AHB/OBS DISCH DAY >30min JEFERSON MAURICIO MD Dec 04, 2024 19:09
[2024-12-05] MEDS ORDERED: levoFLOXACIN-Levaquin 500mg/D5 100 ML IV SCH (08:00)
--- NOTE | 2024-12-05 18:24 | CONSULTATION ---
DATE OF CONSULTATION: 12/04/2024 DICTATING PHYSICIAN: Ishmael Mane MD REASON FOR CONSULTATION: I am seeing the patient at the request of Dr. Noonan for evaluation of common variable immunodeficiency. HISTORY OF PRESENT ILLNESS: The patient is a 44-year-old male who has been battling a variety of medical issues over the past 10 years. He states that he was found to have some hematological abnormalities in the distant past. He was also found to have splenomegaly. He initially underwent workup at [facility]. He was followed by a clinical academic allergist, but never got clear answers. He was then seen by a local clinical academic allergist in [place] and he was eventually evaluated at the [facility] in [place]. He is currently followed by an radiophone operator at that facility who has diagnosed him with common variable immunodeficiency. He is also known to have pancytopenia and splenomegaly. He does have some pulmonary changes and he did undergo VATS with lymph node dissection and lung biopsy. He has never demonstrated evidence of lymphoma. He was seen by a nurse orthopedic who felt that he had granulomatous lymphocytic interstitial lung disease. He was placed on a long course of prednisone that started at 40 mg and tapered down to 20 mg over 8 weeks. He still has about 2 weeks of therapy remaining. He was also placed on Bactrim 3 times weekly for prophylaxis. He was also set up to start IVIG infusions and I believe he received his first infusion on 11/15. It turns out that his creatinine was abnormal in the 2 range before that infusion. His renal function then worsened and he was brought into the hospital because his creatinine was up in the 4 range. He was 4.65 when he was initially seen here and he is now down to 3.43. He is going to be followed by Dr. Yousif as an outpatient. There has been some discussion with his radiophone operator about getting him converted over to subcutaneous immunoglobulin replacement therapy. He has also been switched from Bactrim over to atovaquone for prophylaxis. He states that he has not had a lot of respiratory tract infections. 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 He has also undergone some genetic testing and his states that he has a few abnormalities presumably related to the immune system. He does not have any pulmonary symptoms at this time including cough or significant shortness of breath. He does not have any fever. He states that he is producing a decent amount of urine. All remaining systems are negative. PAST MEDICAL HISTORY: 1. Common variable immunodeficiency. 2. Splenomegaly with pancytopenia. 3. Granulomatous lymphocytic interstitial lung disease. PAST SURGICAL HISTORY: Right VATS with lung biopsy and excisional lymph node biopsy. ALLERGIES: PATIENT IS ALLERGIC TO AZITHROMYCIN. He may have had an adverse reaction to Bactrim. MEDICATIONS: 1. Prednisone 20 mg daily. 2. Albuterol/Atrovent. 3. Colace. FAMILY HISTORY: Noncontributory. He does state that his father was ill much of the time, although his father did smoke. He apparently in his early 60s from a stroke. SOCIAL HISTORY: He is and lives in [place]. He does drink beer. He chews nicotine powder, but he does not use tobacco. 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 PHYSICAL EXAMINATION: VITAL SIGNS: He is afebrile with stable vital signs. GENERAL: He is a very pleasant middle-aged male who looks rather decent considering the circumstances. HEENT: Sclerae anicteric. Mouth is clear. NECK: Supple. LUNGS: Clear to auscultation bilaterally. HEART: Regular rate and rhythm. ABDOMEN: Soft, nontender with a palpable spleen. EXTREMITIES: No edema with some mild scattered bruising. LABORATORY DATA: On labs, his white blood cell count is around 2000, hemoglobin 7.4, platelets 65,000, ESR 8, creatinine is down to 3.4. Hemoglobin A1c is normal. Ferritin is elevated at 1567, iron 61 with a saturation of 19%, LFTs normal. Immunoglobulin levels are pending. CT imaging was reviewed. He demonstrates some mild patchy changes involving the lungs. Some areas demonstrate ground glass and others demonstrate small nodular changes. This does seem consistent with his diagnosis above. He has massive splenomegaly and retroperitoneal adenopathy. Spleen is 24 cm in length. IMPRESSION: * Common variable immunodeficiency, recently replaced with his first dose of IVIG. * Acute kidney injury that may have been developing prior to IVIG and could have been exacerbated by that treatment. It is unclear if Bactrim played a role. He is still undergoing workup, but his renal function seems to be trending in the right direction. * Bilateral patchy pulmonary opacities with a diagnosis of granulomatous lymphocytic interstitial lung disease, followed by Pulmonary at the [facility]. He has been on a long prednisone taper and he is using antibiotic prophylaxis. * Massive splenomegaly with diffuse adenopathy. Excisional lymph node biopsy has been unrevealing. He states that splenectomy has been brought up in the past. RECOMMENDATIONS: I did speak with Dr. Yousif extensively about this patient. We both feel that he is okay to leave the hospital. Dr. Yousif may be arranging outpatient renal biopsy. We will see if his renal function continues to trend in the right direction. He will not be given any further IVIG at this time. I believe his radiophone operator at the [facility] is trying to switch him over to subcutaneous preparation. He will continue with prednisone for now and this will need to be tapered lower moving forward. He is currently on atovaquone for prophylaxis. I will have my office reach out to him after he is discharged. He does not need any antibacterial therapy at this time. We did talk about getting him appropriate vaccinations. I thank you for allowing me to participate in his care. 90 minutes time spent [id number], review of medical records including labs/cultures/imaging, review of [facility] records, and documentation. Ishmael Mane MD TID: [id number] RECEIPT: [id number] YASMANY/CHRISTIANO MANSFIELD
[2024-12-06] MEDS ORDERED: levoFLOXACIN-Levaquin 250mg/D5 50 ML IV SCH (08:00)
== END 2024-12-04 14:02 | disposition home or self-care (01) | DRG 682 ==
LOC: ER 01:17 → ED HOLD 03:36 → EDSEX 03:36 → SUR 3N 21:07
PROVIDERS: ADMIT Internal Medicine Critical Care Medicine; ATTEND Family Medicine
DX: N17.9 Acute kidney failure, unspecified (principal); J15.69 Pneumonia due to other Gram-negative bacteria; J15.9 Unspecified bacterial pneumonia; D61.818 Other pancytopenia; D83.9 Common variable immunodeficiency, unspecified; R16.1 Splenomegaly, not elsewhere classified; R59.1 Generalized enlarged lymph nodes; N18.9 Chronic kidney disease, unspecified; I12.9 Hypertensive chronic kidney disease with stage 1 through stage 4 chronic kidney disease, or unspecified chronic kidney disease; E11.22 Type 2 diabetes mellitus with diabetic chronic kidney disease; D69.6 Thrombocytopenia, unspecified; Z79.899 Other long term (current) drug therapy; Z88.1 Allergy status to other antibiotic agents; Z82.3 Family history of stroke
CPT/HCPCS: 36415; 71250; 74176; 76770; 80053; 80061; 80069; 81001; 82550; 82728; 82784; 83036; 83540; 83550; 83605; 83690; 83735; 83880; 83930; 83935; 84100; 84156; 84300; 84540; 85007; 85025; 85610; 85651; 85730; 86704; 86705; 87040; 87081; 87340; 94640; 94760; 96360; 99285; G0378; J1938; J7030; J7120; J7512; Q4081

== ENCOUNTER 2024-12-22 00:30 | Inpatient (IN) | payer BC ==
[2024-12-22] VITALS (8 sets, daily range): BP systolic 115–129; BP diastolic 66–79; PULSE 61–75; RESP 14–16; TEMP 96–98.4; O2SAT 97–98
[~2024-12-22] VITALS: Ht 172.7 cm; Wt 83.6 kg
[~2024-12-22 00:30] MED LIST: LISI2.5T89 PO; PANT40SU2 PO; PRED5TAB PO; [UNRECOGNIZED DRUG - CODE] PO
--- NOTE | 2024-12-22 00:43 | Physician Documentation ---
History of Present Illness ~ General Chief Complaint: Abnormal Lab(s) Stated Complaint: ABNORMAL LABS M ALS Time Seen by MD: 00:34 Primary Medical Doctor: Francisco Smith MD History of Present Illness Initial Comments Patient presents to the emergency room as a transfer from [facility] for hypercalcemia. Patient has a history of combined immunodeficiency syndrome and takes IgG. He is admitted here a proximally two weeks ago for acute kidney injury. Patient states he is feeling fine today and received a phone call from an outside lab stated that his calcium was very high and he needs to go to the emergency room. That has they did not have Nephrology at [facility] transferred him here. Fluids initiated. Medication Reconciliation Allergies: Coded Allergies: azithromycin (Verified Allergy, Severe, HIVES, 12/22/24) Scheduled Atorvastatin Calcium (Atorvastatin Calcium), 1 TAB PO DAILY, (Reported) Lisinopril (Zestril), 2 TAB PO DAILY, (Reported) Pantoprazole Sodium (Protonix), 40 MG PO DAILY, (Reported) Prednisone* (Prednisone*), 4 TAB PO DAILY, (Reported) Prednisone (Prednisone), 1 TAB PO DAILY, (Reported) Miscellaneous Medications Albuterol Sulfate/Budesonide (Airsupra 90-80 Mcg Inhaler), (Reported) Budesonide/Formoterol Fumarate (Breyna 80-4.5 Mcg Inhaler), Unknown Dose, (Reported) Discontinued Medications Atovaquone (Mepron), 750 MG PO DAILY, (Reported) Discontinued Reason: patient no longer taking Review of Systems ROS All review of systems negative except as per HPI Physical Exam Physical Exam Vital Signs: Temperature: 97.9, Source: Oral, Heart Rate: 60, Respiratory Rate: 16, BP: 131/74, Pulse Oximetry: 98, Weight: 83.640 Oxygen Flow Rate: 0 Physical Exam General: Patient is awake, alert, oriented x4 in no acute distress and well appearing.~ Head: Normocephalic and atraumatic. Eyes: Conjunctival normal. EOMI. PERRL. ENT: Mucous membranes moist. Neck: Supple, trachea is midline. Chest: Clear to auscultation bilaterally without rales, rhonchi, or wheezes. There is no accessory muscle use or retractions. Cardiac: RRR without murmurs, gallops, or rubs. Abd: Soft, nondistended, nontender, with normoactive bowel sounds. No guarding, rebound, or rigidity. Progress Results/Orders Results/Orders Orders - FRANCISCO SMITH MD Page Hospitalist (12/22/24 00:43) Fill Out Med Reconciliation (12/22/24 00:43) Completed Orders - FRANCISCO SMITH MD Electrocardiogram (12/22/24 00:36) Cbc/Diff (12/22/24 00:34) PHOS (12/22/24 00:34) MG (12/22/24 00:34) Man Diff (12/22/24 01:01) Vital Signs 12/22/24 00:32 Temp 97.9 Pulse 60 Resp 16 B/P (MAP) 131/74 Pulse Ox 98 O2 Flow Rate 0 Medical Decision Making Additional information obtaine: old records Findings Patient presented to the emergency room as a transfer from [facility] for hypercalcemia. That has spoken with leather stamper, Dr. Lugo, who recommends in the light of patient's renal function to start Boniva. Differential Diagnosis h Departure Admitted to Inpatient Unit: yes, to hospitalist Impression: Primary Impression: Hypercalcemia Condition: Guarded Referrals: NO PRIMARY CARE PROVIDER (PCP) Signature Scribe Signature: No scribe Attestation: The note accurately reflects work and decisions made by me.Francisco Smith MD 12/22/24 00:43 FRANCISCO SMITH MD Dec 22, 2024 00:43
[2024-12-22] MEDS ORDERED: magnesium sulf-water 2g/50mL 50 ML IV PRN (00:55)
[2024-12-22] MEDS ORDERED: magnesium hydroxide 30ml (MOM) UD suspension PO PRN (00:55)
[2024-12-22] MEDS ORDERED: magnesium sulf-water 4G/100mL 100 ML IV PRN (00:55)
[2024-12-22] MEDS ORDERED: ondansetron/PF 4mg/2ml inj IV PRN (00:55)
[2024-12-22] MEDS ORDERED: potassium Cl 20 mEq SR tablet PO PRN ×2 (00:55)
[2024-12-22] MEDS ORDERED: potassium Cl 40MEQ/1/2NS 520ml 520 ML IV PRN (00:55)
[2024-12-22] MEDS ORDERED: mag hydrox/Alum hydrox/simeth 30ml oral suspension PO PRN (00:55)
[2024-12-22] MEDS ORDERED: magnesium Cl slow-release 64mg tablet PO PRN (00:55)
[2024-12-22] MEDS ORDERED: ATOR40TA72 PO (01:14)
[2024-12-22 01:17] LABS: RED CELL DISTRIBUTION WIDTH 17.0 % (11.5-14.5)
[2024-12-22 01:20] LABS: MEAN PLATELET VOLUME 8.7 FL (7.4-10.4)
[2024-12-22 01:30] LABS: APTT 23 SECONDS (22-32); INR 1.0 INR
[2024-12-22 01:42] LABS: CREATININE 4.91 MG/DL (0.60-1.10); PHOSPHORUS 3.9 MG/DL (2.3-4.5); PRO BRAIN NATRIURETIC PEPTIDE 80 PG/ML (0-125); TOTAL CARBON DIOXIDE 29.3 MMOL/L (24-32); eCRCL 18 ML/MIN; eGFR 13 ML/MIN
[2024-12-22 01:55] LABS: LEUKOCYTE ESTERASE ,URINE NEGATIVE (Neg); NITRITES, URINE NEGATIVE (Neg); OCCULT BLOOD,URINE TRACE-LYSED (Neg)
[2024-12-22 02:09] LABS: UA COLLECTION TYPE CLN CATCH MIDSTREAM
[2024-12-22 02:10] LABS: AMORPHOUS URATES 1+; MUCUS STRANDS NONE SEEN /LPF (Neg); SPERM FEW /HPF (NEGATIVE); SQUAMOUS EPITHELIAL CELL,UR FEW /LPF (FEW)
[2024-12-22 02:49] LABS: ELLIPTOCYTES FEW; EOSINOPHILS % (MANUAL) 3.0 % (0-6); LYMPHOCYTES % (MANUAL) 24.0 % (21-51); MONOCYTES % (MANUAL) 11.0 % (2-12); NEUTROPHILS % (MANUAL) 62.0 % (42-75); PLATELET ESTIMATE DECREASED
[2024-12-22] MEDS: normal saline 1000ml 1,000 ML IV SCH (04:09)
[2024-12-22] MEDS: normal saline 1000ML IV soln IVB ONE (04:10)
--- NOTE | 2024-12-22 04:18 | PROGRESS NOTE ---
Progress Note Dictate Providers to CC ~ Antibiotic Ordered?: N/A MRSA Education MRSA Education Provided to pt: N/A Objective Vitals Vital Signs Date Time Temp Pulse Resp B/P (MAP) Pulse Ox O2 Delivery O2 Flow Rate FiO2 12/22/24 03:11 57 12/22/24 02:55 96.0 14 121/66 (84) 97 Room Air 12/22/24 01:16 0 Lab Results: 12/22/24 0101 12/22/24 0101 Coagulation Studies Laboratory Tests Test 12/22/24 01:01 Prothrombin Time 10.5 SECONDS (9.0-12.0) INR International Normalized Ratio 1.0 INR Activated Partial Thromboplast Time 23 SECONDS (22-32) Coagulation Comments Problem\Assessment\Plan Additional Plan Patient was seen and evaluated using HIPPA complaint AV device Agree with plan as discussed with the resident Refer to their note(yet to be typed) MD REFUGIO Chapa HILL A MD Dec 22, 2024 04:18
--- NOTE | 2024-12-22 04:48 | HISTORY AND PHYSICAL-Residence ---
History & Physical Providers to Resident Creating Document: SHAJI WARREN STAHL, RES ~ History of Present Illness Primary Medical Doctor: Francisco Smith MD Reason for Admit\Complaint: Elevated calcium levels History of Present Illness A 44 years old male with history of common variable immune deficiency, diffuse lymphadenopathy, pancytopenia,fluctuating splenomegaly, Granulomatous lymphocytic interstitial lung disease, HTN, Acute renal failure on CKD was transferred to this hospital from [facility] for evaluation of hypercalcemia. Patient was recently discharged from this hospital 2 weeks ago for acute renal failure. Patient reports that he has doing well, denies any complaints, asymptomatic and he received phone call from the outside lab stated that his calcium was very high and he needs to go to the emergency room. initially, pt went to [facility], they do not have nephrology so the patient was transferred here. Patient denies weakness in the muscles, confusion, fatigue, increased urination, thirsty, irregular heartbeat, nausea and vomiting, constipation, abdominal pain and loss of appetite. C2 Tactical Analysis Technician: Dr. 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 Allergies: Coded Allergies: azithromycin (Verified Allergy, Severe, HIVES, 12/22/24) Home Medications Home Medications Active Reported Atorvastatin Calcium 40 Mg Tablet 1 Tab PO DAILY Protonix (Pantoprazole Sodium) 40 Mg Suspdr.pkt 40 Mg PO DAILY Zestril (Lisinopril) 2.5 Mg Tablet 2 Tab PO DAILY 30 Days Prednisone* (Prednisone) 5 Mg Tablet 4 Tab PO DAILY Past Medical History Past Medical History Common variable immune disease Hypertension Diffuse lymphadenopathy Pancytopenia GLILD Past Surgical History Surgical History Comment Right lung basal partial resection Past Social History Social History Comment Patient drinks about six beers a week Patient chews nicotine powder Patient denies any other history of illicit drug use Patient lives with his in his house in [facility] Patient is physically active and ambulates on his own 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 Gastrointestinal:No Abdominal pain, vomiting,nausea and melena. Normal appetite. No constipation,diarrhea, hematemesis, Musculoskeletal: No swelling or edema of extremities. Integumentary: No change in skin, hair, nails. No swelling, bruising, abrasions Neurologic: No weakness,No headache, neck pain, numbness or tingling of the extremities, Psychiatric: No delusions, depression, loss of interest in normal activity or change in sleep pattern, hallucinations, suicidal ideations Endocrine: No fatigue, no weakness. polydipsia, polyuria, change in appetite, heat or cold intolerance, sweating, dry skin Hematological: No bleeding, petechiae, bruising Allergies: No asthma or urticaria Exam Vitals: Vital Signs Date Time Temp Pulse Resp B/P (MAP) Pulse Ox O2 Delivery O2 Flow Rate FiO2 12/22/24 03:11 57 12/22/24 02:55 96.0 14 121/66 (84) 97 Room Air 12/22/24 01:16 0 General: Awake , alert and oriented to time,place, person,not in distress HEENT: Atraumatic, normocephalic, PERRLA, EOMI, anicteric sclera ; pink conjunctiva, moist mucos membranes Neck: Trachea midline. Supple, normal range of motion, no JVD, no lymphadenopathy Chest and Respiratory: Decreased air entry in both lungs, no tachypnea, wheezing, ronchi,rubs .Chest wall is symmetric and without deformity. Multiple scar noted on right side of the chest post surgical resection of lung. Cardiac: S1, S2 heard,Regular rate and rhythm, no murmurs ,no gallops, no rubs. Abdomen: Soft, No tenderness, No guarding or rigidity, Senior's sign negative. normal bowel sounds x4 quadrant, mild splenomegaly noted MSK: Range of motion of all extremities are normal. There is no joint pain or joint swelling or joint erythema. There is no muscle pain or tenderness or swelling. Extremities: warm, well-perfused, No cyanosis, clubbing, 2+ pulses felt. N icotine stained fingertips. Neurological: Mental status exam: alert and consciousness, orientation, memory, speech - Cranial nerve test: Cranial nerves II-XII intact. - Motor system: Normal Nutrition, normal tone, Power 5/5, no involuntary movements - Sensory system: Intact - Reflex testing: Biceps, triceps and knee reflexes 2+ - Cerebellar: Normal Skin: Warm and dry Psychiatry: Affect and mood are normal Diagnostic Data Last Recorded Lab Results: 12/22/24 01012/22/24 010 Diagnostic Data: Laboratory Tests Test 12/22/24 01:01 Prothrombin Time 10.5 SECONDS (9.0-12.0) INR International Normalized Ratio 1.0 INR Activated Partial Thromboplast Time 23 SECONDS (22-32) Coagulation Comments Advance Care Planning Advanced Care plannin - 30 Minutes Additional Plan Hypercalcemia under evaluation Calcium at [facility] is > 15 Repeated Calcium at this hospital is 12.0 Corrected calcium is 12.6 Dr. Lugo, the taper and floater was consulted by ED physician Dr. Smith IV NS 1L bolus was given, IV NS 100 mL/ hr Boniva, not available in pharmacy, Nephrology recommendations for alternatives. Acute kidney injury most likely intrarenal with CKD likely 2/2 IgG transfusion Current Cr is 4.91 Initiated the patient on 1 L normal saline bolus and 100 mL/hour NS Renal US normal size kidneys without evidence of hydronephrosis Strict input and output monitoring folow Nephrology recommendations. Follow up on urine lytes Common variable immunodeficiency-GLILD Continue home med prednisone for 5mg after med rec Patient has mild shortness of breath occasionally for which he uses Symbicort inhaler Continue Symbicort inhaler 80/4.5, two puffs every 4 hours max 12 puffs per day(has a recommended by his machine stuffer automatic) once med rec is done Thrombocytopenia with splenomegaly Platelet count is 60 K Possibly secondary to platelet sequestration Patient has intermittent splenomegaly with thrombocytopenia Monitor platelet count and signs of bleeding Pancytopenia Possibly secondary to hypersplenism/ CVID Hemoglobin 7.7, RBC 2.66, WBC 1.8 Continue to closely monitor CBC Hypertension New patient's home medication lisinopril 5 mg once med rec is done Code status: Full code DVT prophylaxis : SCDs Nutrition: renal Diet Physical therapy: yes Line/tube: PIV Prognosis: Guarded Disposition: Follow up with urine lytes, follow nephrology recommendations. Resident attestation The above note has been reviewed and supervised by a senior resident PGY2/PGY3 Patient was seen, examined and discussed with the attending physician Estephanie Warren MD Internal Medicine Resident, PGY 1 Date of Service: Dec 22, 2024 Billing Provider: [facility],GUDELIA WARREN,SHAJI STAHL, RES Dec 22, 2024 04:48
--- NOTE | 2024-12-22 05:24 | ELECTROCARDIOGRAPH REPORT ---
[facility] Test Date: 2024-12-22 Test Time: 00:37:07 Pat Name: MITUL SARABIA Department: EMERGENCY ROOM Room: ORTHO 4006 A Gender: M Slab Installer: rossana : 1980 Requested By: PORSCHE AVELAR Order Number: [id number] Reading MD: Dr. LONI Grider Measurements Intervals [place] Rate: 67 P: 41 MA: 150 QRS: 56 QRSD: 94 T: 25 QT: 384 QTc: 406 Interpretive Statements Sinus rhythm Electronically Signed On 12-24-2024 17:38:[address] LONI Grider Please click the below link to view image of tracing.
[2024-12-22] MEDS: K and/or MAG REPLACEMENT MC SCH (08:00)
[2024-12-22] MEDS: enoxaparin 40mg/0.4ml syringe SUBCUT SCH (08:00)
[2024-12-22] MEDS: docusate sod 100mg capsule PO SCH (08:14)
[2024-12-22] MEDS: pantoprazole 40mg Tablet.DR PO SCH (08:20)
[2024-12-22] MEDS ORDERED: ALBU10.7 (08:37)
[2024-12-22] MEDS ORDERED: BUDE10.3 INH (08:37)
[2024-12-22] MEDS ORDERED: PRED10TA PO (08:37)
[2024-12-22] MEDS ORDERED: ipratropium/albuterol 3ml nebule NEB PRN (08:45)
[2024-12-22 09:40] LABS: ABSOLUTE RETICS # 43600 /CUMM (23000-93000)
[2024-12-22 09:48] LABS: LACTATE DEHYDROGENASE 122.0 U/L (85-227)
[2024-12-22 10:02] LABS: EOSINOPHILS % (MANUAL) 3.0 % (0-6); LYMPHOCYTES % (MANUAL) 20.0 % (21-51); MONOCYTES % (MANUAL) 11.0 % (2-12); NEUTROPHILS % (MANUAL) 66.0 % (42-75); PLATELET ESTIMATE DECREASED
[2024-12-22 10:03] LABS: ELLIPTOCYTES FEW
--- NOTE | 2024-12-22 10:43 | RADIOLOGY REPORT ---
INDICATION: possible multiple myeloma TECHNIQUE: 4 views of the skull were obtained. COMPARISON: None FINDINGS: No evidence of an acutely displaced fracture is seen. If clinically concerned about intracranial injury, a CT may be helpful for further evaluation. IMPRESSION: No evidence for metastases. If high clinical suspicion, consider MRI examination
[2024-12-22 12:43] LABS: CREATININE,URINE RANDOM 43.0 MG/DL
[2024-12-22 13:13] LABS: OSMOLALITY UA 268.0 MOSM/K (50-1400)
[2024-12-23 06:08] LABS: MEAN PLATELET VOLUME 8.6 FL (7.4-10.4); RED CELL DISTRIBUTION WIDTH 16.5 % (11.5-14.5)
[2024-12-23 06:15] LABS: CREATININE 4.34 MG/DL (0.60-1.10); TOTAL CARBON DIOXIDE 25.9 MMOL/L (24-32); eCRCL 21 ML/MIN; eGFR 15 ML/MIN
[2024-12-23 06:49] VITALS: BP 118/77; PULSE 67; RESP 16; TEMP 97.8; O2SAT 99
--- NOTE | 2024-12-23 07:40 | CONSULTATION REPORT ---
Consult Providers to CC ~ History of Present Illness Primary Medical Doctor: (IM resident) Reason for Admit\Complaint: recurrent RONEL with CKd, hypercalcemia History of Present Illness I have been requested again to do renal consult for this 44/M that presents with pancytopenia, GLILD (Granulomatous Lymphocytic Interstitial Lung Disease) with CVID (Common Variable Immunodeficiency). He recently was in the hospital in late november with RONEL that responded partially to the iv fluids. ID consulted as well and he was discharged with an outpatient follow up arranged with us this week. At that time, he had presented to the ED after critical increase in his creatinine as per recent lab report. Creatinine was elevated 4.65 post IgG transfusion one week ptp. The is an excellent historian and mentioned that he had a jump in Serum creatinine to 2.6 as November 13, 2024, earlier it used to 1.2. He received iVIG only after November 14. I got introduced to him only during the last admission here. Patient denies weakness in the muscles, confusion, fatigue, increased urination, thirsty, irregular heartbeat, nausea and vomiting, constipation, abdominal pain and loss of appetite. From the resident's wonderful assimilation of the PMHx: As per patient's history and reports from [facility] Patient stated that all this started about 10 years ago when he noticed splenomegaly when he went to [facility] where he was noted to have severely low platelet count. They did a full workup and suspected Hodgkin's lymphoma but was not confirmed. 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 Imaging was done which revealed lymphadenopathy and splenomegaly. Due to suspicion for potential Hodgkin's lymphoma PET scan was performed.Lung biopsy was performed in July 2024 which was negative for cancer and silicosis. Patient has a history of hypogammaglobulinemia with low IgG IgA and IgM levels, specific antibody testing and flow cytometry to evaluate lymphocyte subsets were performed and the patient was consistent with granulomatous lymphocytic interstitial lung disease patient was started on a prednisone taper for 4-8 weeks with Bactrim for Pneumocystis prophylaxis and repeat CT was planned. Patient stated that he experiences fluctuating splenomegaly associated with dizziness and nausea particularly when the spleen is enlarged. Patient was initiated on IgG transfusions for his hypogammaglobulinemia received his 1st transfusion one week ago this was for about 6 hours and a repeat kidney function tests post that showed a elevated creatinine Patient also history of thrombocytopenia and bruising he associates with splenomegaly. Patient also stated that he does feel significant fatigue. Reports gathered from [place], [place]: 10/20/2024 CBC with differential notable for mild anemia hemoglobin of 11.5, absolute lymphocyte count decreased to 840, platelet count 62. Flow cytometry shows decrease CD3 cells, decreased absolute NK, B-cells, IgA reduced at 17, IgG decreased at 375, IgM decreased at 34. IgE undetectable. CH 50 normal, C3 and C4 normal Pulmonary function test: FEV1 reduced at 68% of predicted. FEV1 by FVC ratio reduced at 81% of predicted(65%). Diffusion capacity mildly reduced at 72%. We will spirometry consistent with mild obstruction with a significant response to bronchodilators with an increase of 260 mL in the FEV1. Exhaled nitric oxide normal. Patient is currently following up with [facility], he has a heme oncologist in [place] as well for his transfusion. 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 Allergies: Coded Allergies: azithromycin (Verified Allergy, Severe, HIVES, 12/22/24) Home Medications Home Medications Active Reported Prednisone (Prednisone) 10 Mg Tablet 1 Tab PO DAILY Breyna 80-4.5 Mcg Inhaler (Budesonide/Formoterol Fumarate) Unknown Strength Hfa.aer.ad Unknown Dose Airsupra 90-80 Mcg Inhaler (Albuterol Sulfate/Budesonide) 90 Mcg-80 Mcg/Actuation Hfa.aer.ad Atorvastatin Calcium 40 Mg Tablet 1 Tab PO DAILY Protonix (Pantoprazole Sodium) 40 Mg Suspdr.pkt 40 Mg PO DAILY Zestril (Lisinopril) 2.5 Mg Tablet 2 Tab PO DAILY 30 Days Prednisone* (Prednisone) 5 Mg Tablet 4 Tab PO DAILY Past Medical History Past Medical History Common variable immune disease Hypertension Diffuse lymphadenopathy Pancytopenia GLILD Past Surgical History Surgical History Comment Right lung basal partial resection Family History Family History: FH: COPD (chronic obstructive pulmonary disease) FATHER FH: asthma FATHER FH: diabetes mellitus MOTHER Past Social History Social History Comment Patient drinks about six beers a week Patient chews nicotine powder Patient denies any other history of illicit drug use Exam Vitals: Vital Signs Date Time Temp Pulse Resp B/P (MAP) Pulse Ox O2 Delivery O2 Flow Rate FiO2 12/23/24 06:49 97.8 67 16 118/77 (91) 99 12/22/24 22:00 Room Air 12/22/24 09:35 0 21 General: Vital Signs: As above General: Normal body habitus, no acute distress. Skin: No rashes, lumps, ulcers, blisters, purpura or petechiae HEENT: Anicteric sclera, LOTTIE Neck: Supple and nontender without enlargement of the thyroid, or lymphadenopathy. Chest: Normal size and shape, no tenderness, CTA bilaterally Heart: Regular. No jugular venous distention, S1 and S2 heard , no gallop Abdomen: Soft and non tender no organomegaly,BS+ Extremities: No pedal edema Neuro: Nonfocal. Diagnostic Data Last Recorded Lab Results: [id number]/[id number] Diagnostic Data: Laboratory Tests Test 12/22/24 01:01 Prothrombin Time 10.5 SECONDS (9.0-12.0) INR International Normalized Ratio 1.0 INR Activated Partial Thromboplast Time 23 SECONDS (22-32) Coagulation Comments Problems: (1) Common variable immunodeficiency (CVID) Status: Acute Assessment & Plan: with pancytopenia. goal is to fix this first, before subjecting himto renal biopsy. at this time, heneeds to be hydrated. He needs epogen. check iron profile. will give a dose of neupogen. Arranging a biospy before saturday is going to be very difficult. Also, he is responding to the iv frluids so far with some improvement in in renal function. (2) Acute kidney injury Status: Acute Assessment & Plan: this time, the hypercalcemia is causing him to have diuretic effect, and he is definitely appearing volume depleted at this time. will continue hydsration and hang 1 liter wide open first and continue fluids at 150 cc pe rhour. (3) Pancytopenia Assessment & Plan: as above. (4) Hypercalcemia Status: Acute Assessment & Plan: s/p pamidronaate. will continue iv hydration. DAE LUJAN MD Dec 23, 2024 07:40
[2024-12-23] MEDS ORDERED: enoxaparin 30mg/0.3ml syringe SUBCUT SCH (08:00)
[2024-12-23] MEDS: ringers solution, lacted 1,000 ML IV ONE (08:58)
[2024-12-23 09:07] LABS: EOSINOPHILS % (MANUAL) 3.0 % (0-6); LYMPHOCYTES % (MANUAL) 20.0 % (21-51); MONOCYTES % (MANUAL) 15.0 % (2-12); NEUTROPHILS % (MANUAL) 62.0 % (42-75); PLATELET ESTIMATE DECREASED
[2024-12-23 09:33] VITALS: RESP 16; O2SAT 99
[2024-12-23 10:00] VITALS: BP 123/77; PULSE 73; RESP 16; TEMP 97.3; O2SAT 100
[2024-12-23] MEDS: TBO-filgrastim 300 MCG/0.5 ML inj. SQ ONE (10:31)
[2024-12-23] MEDS: ringers solution, lacted 1,000 ML IV SCH (10:32)
[2024-12-23 11:21] LABS: MEAN PLATELET VOLUME 8.3 FL (7.4-10.4); RED CELL DISTRIBUTION WIDTH 16.9 % (11.5-14.5)
--- NOTE | 2024-12-23 14:11 | PROGRESS NOTE- Residence ---
Progress Note - Resident Providers to CC Resident Creating Document: MAMTA ABBOTT RES ~ Antibiotic Timeout Antibiotic Ordered?: No Subjective Patient was seen and examined bedside. He is active and not in distress. He complains of mild polyuria. He denies fever, chills, cough, burning micturition and other medical complaints. Objective Vital Signs Date Time Temp Pulse Resp B/P (MAP) Pulse Ox O2 Delivery O2 Flow Rate FiO2 12/23/24 09:33 16 99 Room Air 12/23/24 06:49 97.8 67 118/77 (91) 12/22/24 09:35 0 21 Result Diagram: 12/23/24 1112 12/23/24 0543 Awake , alert, and oriented x4, resting comfortably in the bed, in no acute distress HEENT: Atraumatic, normocephalic, EOMI, anicteric sclera ; pale conjunctiva Neck: Trachea midline. Supple, full range of motion, no JVD, no lymphadenopathy Cardiac: Regular rhythm, regular rate with no murmurs all over the precordium. Respiratory: Decreased air entry bilaterally, no tachypnea, no wheezing ,rub or rales, Chest wall is symmetric and without deformity, multiple scars noted on right side of the chest post surgical partial resection of right basal lung Gastrointestinal: Abdomen symmetric, non-distended, soft, non-tender, normal bowel sounds, splenomegaly present Musculoskeletal: No pedal edema, no cyanosis Neurological: Speech is clear, alert, and oriented x 4. No motor or sensory deficit, deep tendon reflexes normal, cerebellar intact. Cranial nerves II-XII intact. Skin: Warm and dry Coagulation Studies Laboratory Tests Test 12/22/24 01:01 Prothrombin Time 10.5 SECONDS (9.0-12.0) INR International Normalized Ratio 1.0 INR Activated Partial Thromboplast Time 23 SECONDS (22-32) Coagulation Comments Assessment Assessment 44-year-old male with history of CVID, diffuse lymphadenopathy, pancytopenia, fluctuating splenomegaly, granulomatous lymphocytic interstitial lung disease, CKD was transferred to this hospital from [place] for management of hypercalcemia and RONEL on CKD. 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 Calcium has downtrended from 12 to 10.7 Ionized calcium has downtrended from 1.78 to 1.64 Parathyroid hormone is low - 7 Patient has history of diffuse lymphadenopathy Previous chest/abdomen/pelvis CT on 12/03/24 shows massive splenomegaly and retroperitoneal lymphadenopathy He follows up with Oncology at [facility] and gets IgG transfusions at [place] for CVID Barrel Scraper, Dr. Noonan was consulted yesterday and he recommended to continue patient on fluids and to give 1 time dose of pamidronate 30 mg Follow up SPEP, MILLIE He was given 1 bolus of RL today Started on RL 150 mL/hour RONEL on CKD, most likely intrarenal Creatinine has downtrended from 4.91 to 4.34 BUN is 37 BUN/Cr is 8.5 FENA is 5.6%, which suggests intrarenal RONEL, which could be due to hypercalcemia or IgG transfusions Previous Renal US on 12/02/24 shows normal size kidneys without evidence of hydronephrosis Strict I's and o's Continue RL at 150 mL/hour Follow up ESR, HIV serology, ARTURO, p-ANCA, c-ANCA, C3 and C4, ASO antibodies, GBM IgA Dr. Noonan was consulted and he recommended kidney biopsy outpatient Common variable immunodeficiency Continued home medication prednisolone 10 mg Patient has mild shortness of breath occasionally for which he uses Symbicort inhaler Continued Symbicort inhaler 80/4.5, two puffs every 4 hours max 12 puffs per day(has a recommended by his tar pot man) Pancytopenia with splenomegaly, possibly 2/2 platelet sequestration WBC is 1000, RBC is 2.55 Platelet count is 58K H&H 7.3/21.9 Reticulocyte count is high- 1.7 LDH is normal-122, Uric acid is elevated 11 Follow up direct Waqas test Monitor for bleeding Monitor H&H, transfuse PRBC if Hb < 7 Patient is on a neutropenic diet Hypertension Blood pressure is stable Patient uses lisinopril 5 mg at home Discontinued lisinopril in view of low GFR Code status: Full code DVT prophylaxis : SCDs Nutrition: Neutropenic diet Physical therapy: yes Line/tube: PIV Prognosis: Guarded Disposition: Continue RL at 150 mL/hour, monitor H&H, follow nephrology recommendations, kidney biopsy outpatient Resident attestation The above note has been reviewed and supervised by a senior resident PGY2/PGY3 Patient was seen, examined and discussed with the attending physician, Dr. Meena Abbott MD Internal Medicine resident, PGY-1 Date of Service: Dec 23, 2024 Billing Provider: ROCHELLE FOSTER MD, PREETHI, RES Dec 23, 2024 14:11
[2024-12-23] MEDS ORDERED: BUDE10.3 INH (14:48)
[2024-12-23] MEDS ORDERED: polyvinyl alcohol eye drops 15ML BOTTLE EACHEYE PRN (15:20)
[2024-12-23 16:01] VITALS: PULSE 75; RESP 16; O2SAT 96
[2024-12-23] MEDS: albuterol 2.5 MG/3 ML nebule NEB SCH (16:01)
[2024-12-23] MEDS: budesonide 0.5mg/2ml UD nebule IH SCH ×2 (16:01→19:58)
[2024-12-23 16:15] VITALS: PULSE 78; RESP 17
[2024-12-23 17:34] LABS: MEAN PLATELET VOLUME 8.6 FL (7.4-10.4); RED CELL DISTRIBUTION WIDTH 16.8 % (11.5-14.5)
[2024-12-23 22:00] VITALS: BP 129/68; PULSE 70; RESP 15; TEMP 97.8; O2SAT 99
[2024-12-24 00:28] LABS: MEAN PLATELET VOLUME 8.9 FL (7.4-10.4); RED CELL DISTRIBUTION WIDTH 16.6 % (11.5-14.5)
[2024-12-24 06:00] VITALS: BP 121/70; PULSE 69; RESP 14; TEMP 97.6; O2SAT 98
[2024-12-24 06:19] LABS: MEAN PLATELET VOLUME 8.9 FL (7.4-10.4); RED CELL DISTRIBUTION WIDTH 16.7 % (11.5-14.5)
[2024-12-24 06:35] LABS: CREATININE 3.75 MG/DL (0.60-1.10); LACTATE DEHYDROGENASE 114 U/L (85-227); TOTAL CARBON DIOXIDE 25.0 MMOL/L (24-32); eCRCL 24 ML/MIN; eGFR 18 ML/MIN
[2024-12-24 07:45] LABS: HIV ANTIBODY 1&2 RAPID NON-REACTIVE (Neg)
[2024-12-24 10:00] VITALS: BP 131/76; PULSE 75; RESP 17; TEMP 98.6; O2SAT 98
[2024-12-24 11:19] LABS: MEAN PLATELET VOLUME 8.8 FL (7.4-10.4); RED CELL DISTRIBUTION WIDTH 16.7 % (11.5-14.5)
[2024-12-24 16:14] LABS: OCCULT BLOOD STOOL NEGATIVE (Neg)
[2024-12-24 16:35] VITALS: PULSE 76; RESP 16; O2SAT 100
--- NOTE | 2024-12-24 17:49 | PROGRESS NOTE- Residence ---
Progress Note - Resident Providers to CC Resident Creating Document: MAMTA ABBOTT RES ~ Antibiotic Timeout Antibiotic Ordered?: No Subjective Patient was seen and examined bedside. He is active and not in distress. He denies fever, chills, cough, burning micturition and other medical complaints. Objective Vital Signs Date Time Temp Pulse Resp B/P (MAP) Pulse Ox O2 Delivery O2 Flow Rate FiO2 12/24/24 16:35 76 16 100 Room Air* 0 21 12/24/24 10:00 98.6 131/76 (94) Result Diagram: 12/24/24 1102 12/24/24 0507 Awake , alert, and oriented x4, resting comfortably in the bed, in no acute distress HEENT: Atraumatic, normocephalic, EOMI, anicteric sclera ; pale conjunctiva Neck: Trachea midline. Supple, full range of motion, no JVD, no lymphadenopathy Cardiac: Regular rhythm, regular rate with no murmurs all over the precordium. Respiratory: Decreased air entry bilaterally, no tachypnea, no wheezing ,rub or rales, Chest wall is symmetric and without deformity, multiple scars noted on right side of the chest post surgical partial resection of right basal lung Gastrointestinal: Abdomen symmetric, non-distended, soft, non-tender, normal bowel sounds, splenomegaly present Musculoskeletal: No pedal edema, no cyanosis Neurological: Speech is clear, alert, and oriented x 4. No motor or sensory deficit, deep tendon reflexes normal, cerebellar intact. Cranial nerves II-XII intact. Skin: Warm and dry Coagulation Studies Laboratory Tests Test 12/22/24 01:01 Prothrombin Time 10.5 SECONDS (9.0-12.0) INR International Normalized Ratio 1.0 INR Activated Partial Thromboplast Time 23 SECONDS (22-32) Coagulation Comments Assessment Assessment 44-year-old male with history of CVID, diffuse lymphadenopathy, pancytopenia, fluctuating splenomegaly, granulomatous lymphocytic interstitial lung disease, CKD was transferred to this hospital from [place] for management of hypercalcemia and RONEL on CKD. 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 Patient has history of diffuse lymphadenopathy Previous chest/abdomen/pelvis CT on 12/03/24 shows massive splenomegaly and retroperitoneal lymphadenopathy Calcium has downtrended to 10.4 Ionized calcium has downtrended to 1.62 Parathyroid hormone is low - 7 He follows up with Oncology at [facility] and [place] and gets IgG transfusions at [place] for CVID Follow up SPEP, MILLIE Continue RL 150 mL/hour RONEL on CKD, most likely intrarenal Creatinine has downtrended to 3.75 BUN has downtrended to 28 BUN/Cr is 7.5 FENA is 5.6%, which suggests intrarenal RONEL, which could be due to hypercalcemia or IgG transfusions Previous Renal US on 12/02/24 shows normal size kidneys without evidence of hydronephrosis Strict I's and o's Continue RL at 150 mL/hour Follow up ARTURO, p-ANCA, c-ANCA, C3 and C4, ASO antibodies, GBM IgA HIV is non reactive, ESR is normal Registered Respiratory Therapist, Dr. Noonan is following the case and he recommends renal biopsy in [facility], and that he cannot get a biopsy when he has severe pancytopenia, so current goal is to manage pancytopenia Common variable immunodeficiency Continued home medication prednisolone 10 mg Patient has mild shortness of breath occasionally for which he uses Symbicort inhaler Continued Symbicort inhaler two puffs BID Pancytopenia with splenomegaly, possibly 2/2 platelet sequestration WBC is 2.9 Platelet count is 48k H&H - 6.7/19.4 Monitor for bleeding, stool occult blood is negative Reticulocyte count is high- 1.7 LDH is normal, Uric acid is elevated 11 Follow up direct Waqas test Follow up iron profile Monitor H&H Patient is on a neutropenic diet He had positive antibody screen against blood, so the antigen free blood will be coming from [place] today night, and he will be receiving 2 units after they arrive, probably tomorrow at 2 to 3 am Hypertension Blood pressure is stable Patient uses lisinopril 5 mg at home Discontinued lisinopril in view of low GFR Code status: Full code DVT prophylaxis : SCDs Nutrition: Neutropenic diet Physical therapy: yes Line/tube: PIV Prognosis: Guarded Disposition: Continue RL at 150 mL/hour, Patient will receive 2 units of antigen free blood from [place] tomorrow at 2 to 3 am, Plan to discharge tomorrow and recommend renal biopsy in [facility]. Resident attestation The above note has been reviewed and supervised by a senior resident PGY2/PGY3 Patient was seen, examined and discussed with the attending physician, Dr. Meena Abbott MD Internal Medicine resident, PGY-1 Date of Service: Dec 24, 2024 Billing Provider: ROCHELLE FOSTER MD,MAMTA, RES Dec 24, 2024 17:49
[2024-12-24 18:00] VITALS: BP 127/71; PULSE 74; RESP 16; TEMP 97.9; O2SAT 100
[2024-12-24 19:12] LABS: MEAN PLATELET VOLUME 9.0 FL (7.4-10.4); RED CELL DISTRIBUTION WIDTH 16.6 % (11.5-14.5)
[2024-12-24 19:59] LABS: % IRON SATURATION 14 % (11-46)
[2024-12-24 22:00] VITALS: BP 134/75; PULSE 69; RESP 15; TEMP 97.9; O2SAT 98
[2024-12-25] VITALS (7 sets, daily range): BP systolic 112–141; BP diastolic 73–80; PULSE 60–78; RESP 16–20; TEMP 97.7–98; O2SAT 98–100
[2024-12-25 07:50] LABS: MEAN PLATELET VOLUME 8.7 FL (7.4-10.4); RED CELL DISTRIBUTION WIDTH 16.5 % (11.5-14.5)
[2024-12-25 08:00] LABS: CREATININE 3.38 MG/DL (0.60-1.10); TOTAL CARBON DIOXIDE 28.9 MMOL/L (24-32); eCRCL 26 ML/MIN; eGFR 20 ML/MIN
--- NOTE | 2024-12-25 17:37 | DISCHARGE SUMMARY-Residence ---
Discharge Summary Providers to CC Resident Creating Document: DAISYBEATRIZ DAVILA ~ Discharge Summary Admission Diagnosis: HYPERCALCEMIA Hospital Course DATE OF ADMISSION: DATE OF DISCHARGE: Discharge Diagnosis\Comment: # Hypercalcemia, unable to exclude the etiology ( mostly from the extra renal hyper calcitriol activity from GLILD Vs Lymphoma Vs MM) # Pancytopenia from Splenomegaly and hypersplenism # RONEL- intrinsic renal cause possibly from Hypercalcemia induced renal toxicity on CKD stage 4 # Acquired Common Variable Immunodeficiency receiving IVIG # Hx of granulomatous lymphocytic interstitial lung disease (GLILD) # history of asthma # history of GERD # history of hyperlipidemia # history of umbilical hernia # history of CVA Operations\Procedures: None Consultants: Dr Yousif, Nephrology Complications: None Condition on DC: Stable Continued Medications: Albuterol Sulfate/Budesonide (Airsupra 90-80 Mcg Inhaler) 90 Mcg-80 Mcg/Actuation Hfa.aer.ad Atorvastatin Calcium (Atorvastatin Calcium) 40 Mg Tablet 1 TAB PO DAILY Budesonide/Formoterol Fumarate (Breyna 80-4.5 Mcg Inhaler) 80 Mcg-4.5 Mcg/Actuation Hfa.aer.ad 2 PUFFS INH Q4H for 30 Days, #2 INH Lisinopril (Zestril) 2.5 Mg Tablet 2 TAB PO DAILY for 30 Days, #30 TAB 0 Refills Pantoprazole Sodium (Protonix) 40 Mg Suspdr.pkt 40 MG PO DAILY, PACKET Prednisone (Prednisone) 10 Mg Tablet 1 TAB PO DAILY Discontinued Medications: Prednisone* (Prednisone*) 5 Mg Tablet 4 TAB PO DAILY, TAB Discharge Summary: A 44 years old male with a history of acquired CVID receiving IVIG, GLILD, Pancytopenia from Splenomegaly and hypersplenism, CKD stage 4, history of asthma, GERD, hyperlipidemia, overweight BMI 28, history of umbilical hernia, history of CVA was transferred from [facility] for higher level of care with Nephrology consultation for his malignant hypercalcemia and is induced RONEL on CKD. Hospital course: Patient received IVIG at the outpatient setting for his acquire common variable immunodeficiency last five weeks ago at local [facility] oncologist office in [place], who maintain the continuous therapy and management from [facility] in [place], and found to have malignant hypercalcemia with a 15, ionized calcium was elevated with >1.5 which necessitates for further management at the higher level care. Patient denies for any confusion, seizure-like activity, any constipation, crampy abdominal pain except for the abdominal pain for splenomegaly, any psychiatric changes, and palpitations. He was given generous IV fluid replacement with normal saline 1 L bolus followed by maintenance infusion and maintenance ringer lactate infusion as well. His creatinine level was gradually trending down on discharge. He also found to have pancytopenia from his possible splenomegaly and hypersplenism for which he received leukocyte reduced irradiated of O positive packed red blood cell transfusions total 2 units for symptomatic anemia with hemoglobin 6.7 during hospitalization. He was placed in the isolated room for his CVID with neutropenic protocol. His serum calcium was gradually going down to 10.[address] Yousif/nephrology was requested for hypercalcemia induced intrinsic renal acute kidney injury on CKD, multiple blood works were ordered, revealing low parathormone level, and pending protein electrophoresis with immunofixation and angiotensin-converting enzymes levels, vitamin-D 25 levels, some immunology workup with ARTURO, C Anca, atypical p-ANCA, p-ANCA antibody, glomerular basement membrane IgA, complement C3 and C4 levels, and ASO antibody. His HIV one and two antibody show nonreactive. The renal ultrasound was also ordered and Nephrology recommended to proceed with a possible renal biopsy at [facility] outpatient in setting of pancytopenia especially with symptomatic low platelet count around 40s. We will continue all of his home medications for his COPD, steroid medications, hypertension etc. after appropriate reviewed and reconciled during hospitalization. We did pancytopenia workup to exclude other potential causes in lieu of higher chances of possibility from hypersplenism. DVT prophylaxis was achieved with the SCDs until fully ambulatory. Diet was provided as per neutrophilic protocol. All of his questions and concerns were addressed with the best knowledge of our team before he was discharged back home today. All of his vitals were stable at the moment with temp 98 F, FL 65/minute, RR 16/min pala, BP 134/79 mm Hg, pulse oximetry 100% on room air. On examination, General: Well alert, well oriented, not confused, not agitated, not in acute distress, well cooperated during the physical. HEENT: Conjunctive are pink, sclerae clear, no icterus, pupil is equal in both sides, reactive to light, no ear discharge, no pharyngeal erythema or an edema, mouth and lips are moist. Neck: Supple, no JVD, no lymphadenopathy and thyromegaly. Lungs:Equal air entry on both lungs, no additional sounds Chest: Multiple post biopsy scars were noted on the right lateral side of the chest especially at the right basilar of the lung. Heart: S1-S2 regular sinus rhythm and, regular rate, no gallops, no rubs, no murmurs Abdomen: No visible peristalsis, Bowel sounds present on auscultation, soft, nontender, no guarding, no rigidity The huge splenomegaly with blunted edges were extended up to the right iliac fossa with mild tenderness over the mass and no severe splenic bruit were noted. No hepatomegaly were marked. 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 If high clinical suspicion, consider MRI examination Labs: Laboratory Tests Test 12/23/24 23:14 12/23/24 23:49 12/24/24 05:07 12/24/24 11:02 Hematology Comments White Blood Count 3.2 X10'3 2.9 X10'3 4.0 X10'3 Red Blood Count 2.37 X10'6 2.30 X10'6 2.59 X10'6 Hemoglobin 7.0 g/dl 6.7 g/dl 7.5 g/dl Hematocrit 19.8 % 19.4 % 22.1 % Mean Corpuscular Volume 83.5 FL 84.4 FL 85.5 FL Mean Corpuscular Hemoglobin 29.4 PG 29.1 PG 29.1 PG Mean Corpuscular Hemoglobin Concent 35.2 g/dL 34.5 g/dL 34.0 g/dL Red Cell Distribution Width 16.6 % 16.7 % 16.7 % Platelet Count 53 X10'3 48 X10'3 58 X10'3 Mean Platelet Volume 8.9 FL 8.9 FL 8.8 FL Neutrophils (%) (Auto) 76.8 % Lymphocytes (%) (Auto) 12.6 % Monocytes (%) (Auto) 9.3 % Eosinophils (%) (Auto) 0.7 % Basophils (%) (Auto) 0.6 % Neutrophils # (Auto) 2.2 X10'3 Lymphocytes # (Auto) 0.4 X10'3 Monocytes # (Auto) 0.3 X10'3 Eosinophils # (Auto) 0.0 X10'3 Basophils # (Auto) 0.0 X10'3 CBC Comment Erythrocyte Sedimentation Rate 7 MM/HR Sodium Level 142 MMOL/L Potassium Level 3.6 MMOL/L Chloride Level 108 MMOL/L Carbon Dioxide Level 25.0 MMOL/L Anion Gap 9 Blood Urea Nitrogen 28 MG/DL Creatinine 3.75 MG/DL Estimated GFR/1.73 m2 18 ML/MIN BUN/Creatinine Ratio 7.5 Glucose Level 85 MG/DL Calcium Level 10.4 MG/DL Ionized Calcium (Measured) 1.62 MMOL/L Lactate Dehydrogenase 114 U/L Albumin 2.9 G/DL Chemistry Comments HIV (1&2) Antibody Non-reactive Test 12/24/24 15:45 12/24/24 18:26 12/25/24 07:22 Stool Occult Blood Negative White Blood Count 3.4 X10'3 3.3 X10'3 Red Blood Count 2.49 X10'6 3.16 X10'6 Hemoglobin 7.3 g/dl 9.2 g/dl Hematocrit 21.2 % 26.7 % Mean Corpuscular Volume 85.2 FL 84.6 FL Mean Corpuscular Hemoglobin 29.3 PG 29.0 PG Mean Corpuscular Hemoglobin Concent 34.4 g/dL 34.3 g/dL Red Cell Distribution Width 16.6 % 16.5 % Platelet Count 60 X10'3 64 X10'3 Mean Platelet Volume 9.0 FL 8.7 FL Hematology Comments Iron Level 41 UG/DL Total Iron Binding Capacity 292 UG/DL Percent Iron Saturation 14 % Ferritin 1256 NG/ML Neutrophils (%) (Auto) 75.8 % Lymphocytes (%) (Auto) 11.9 % Monocytes (%) (Auto) 11.0 % Eosinophils (%) (Auto) 0.7 % Basophils (%) (Auto) 0.6 % Neutrophils # (Auto) 2.5 X10'3 Lymphocytes # (Auto) 0.4 X10'3 Monocytes # (Auto) 0.4 X10'3 Eosinophils # (Auto) 0.0 X10'3 Basophils # (Auto) 0.0 X10'3 CBC Comment Sodium Level 143 MMOL/L Potassium Level 3.6 MMOL/L Chloride Level 108 MMOL/L Carbon Dioxide Level 28.9 MMOL/L Anion Gap 6 Blood Urea Nitrogen 25 MG/DL Creatinine 3.38 MG/DL Estimated GFR/1.73 m2 20 ML/MIN BUN/Creatinine Ratio 7.4 Glucose Level 87 MG/DL Calcium Level 10.8 MG/DL Ionized Calcium (Measured) 1.64 MMOL/L Albumin 3.2 G/DL Chemistry Comments Discharge instructions: - immediate return to the ER for any emergency conditons including uncontrolla ble progressive bleeding, high grade fever with chills and rigors, severe progressive abdominal pain, any severe infections in the body, severe progressive gerenalized weakness fatigue lethergy and palpitatoins, etc -Continue following up with the PCP to recheck CBC CMP, and Oncology in the [place] to maintaint the treatements from [facility]. -avoid the physical contact sports to reduce the chances of abdominal blunt trauma to prevent splenic rupture. -Continue following up with the Nephrology Dr Yousif for the -avoid going to the crowded places where there is higher chances of having infections, etc Resident MD attestation: Patient was seen, examined and discussed with attending MD, Dr. Meena VILLA MD Internal Medicine Resident, PGY3 [facility] *Problems/Diagnosis: (1) Common variable immunodeficiency (CVID) Status: Chronic (2) Acute kidney injury Status: Acute (3) Pancytopenia Status: Chronic (4) Hypercalcemia Status: Acute Total Time Spent on D/C: > 30 Minutes Date of Service: Dec 25, 2024 Billing Provider: ROCHELLE FOSTER MD, TIN, RES Dec 25, 2024 17:12
--- NOTE | 2024-12-25 17:54 | PROGRESS NOTE ---
Progress Note Dictate Providers to CC ~ Progress Note: I have been requested again to do renal consult for this 44/M that presents with pancytopenia, GLILD (Granulomatous Lymphocytic Interstitial Lung Disease) with CVID (Common Variable Immunodeficiency). He recently was in the hospital in late november with RONEL that responded partially to the iv fluids. ID consulted as well and he was discharged with an outpatient follow up arranged with us this week. At that time, he had presented to the ED after critical increase in his creatinine as per recent lab report. Creatinine was elevated 4.65 post IgG transfusion one week ptp. The is an excellent historian and mentioned that he had a jump in Serum creatinine to 2.6 as November 13, 2024, earlier it used to 1.2. He received iVIG only after November 14. I got introduced to him only during the last admission here. Patient denies weakness in the muscles, confusion, fatigue, increased urination, thirsty, irregular heartbeat, nausea and vomiting, constipation, abdominal pain and loss of appetite. From the resident's wonderful assimilation of the PMHx: As per patient's history and reports from [facility] Patient stated that all this started about 10 years ago when he noticed splenomegaly when he went to [facility] where he was noted to have severely low platelet count. They did a full workup and suspected Hodgkin's lymphoma but was not confirmed. 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 Imaging was done which revealed lymphadenopathy and splenomegaly. Due to suspicion for potential Hodgkin's lymphoma PET scan was performed.Lung biopsy was performed in July 2024 which was negative for cancer and silicosis. Patient has a history of hypogammaglobulinemia with low IgG IgA and IgM levels, specific antibody testing and flow cytometry to evaluate lymphocyte subsets were performed and the patient was consistent with granulomatous lymphocytic interstitial lung disease patient was started on a prednisone taper for 4-8 weeks with Bactrim for Pneumocystis prophylaxis and repeat CT was planned. Patient stated that he experiences fluctuating splenomegaly associated with dizziness and nausea particularly when the spleen is enlarged. Patient was initiated on IgG transfusions for his hypogammaglobulinemia received his 1st transfusion one week ago this was for about 6 hours and a repeat kidney function tests post that showed a elevated creatinine Patient also history of thrombocytopenia and bruising he associates with splenomegaly. Patient also stated that he does feel significant fatigue. Reports gathered from [place], [place]: 10/20/2024 CBC with differential notable for mild anemia hemoglobin of 11.5, absolute lymphocyte count decreased to 840, platelet count 62. Flow cytometry shows decrease CD3 cells, decreased absolute NK, B-cells, IgA reduced at 17, IgG decreased at 375, IgM decreased at 34. IgE undetectable. CH 50 normal, C3 and C4 normal Pulmonary function test: FEV1 reduced at 68% of predicted. FEV1 by FVC ratio reduced at 81% of predicted(65%). Diffusion capacity mildly reduced at 72%. We will spirometry consistent with mild obstruction with a significant response to bronchodilators with an increase of 260 mL in the FEV1. Exhaled nitric oxide normal. Patient is currently following up with [facility], [place], he has a heme oncologist in [place] as well for his transfusion. 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 Antibiotic Ordered?: N/A Objective Vitals Vital Signs Date Time Temp Pulse Resp B/P (MAP) Pulse Ox O2 Delivery O2 Flow Rate FiO2 12/25/24 10:00 98.0 65 16 134/79 (97) 100 Room Air 12/24/24 16:35 0 21 Alert RRR w/o murmur, no JVD CTAB, no wheezes +BS, NT No edema Lab Results: 12/25/24 0722 12/25/24 0722 Coagulation Studies Laboratory Tests Test 12/22/24 01:01 Prothrombin Time 10.5 SECONDS (9.0-12.0) INR International Normalized Ratio 1.0 INR Activated Partial Thromboplast Time 23 SECONDS (22-32) Coagulation Comments Other Results I & O 12/25/24 07:00 Intake Total 2962 ml Output Total 3525 ml Balance -563 ml Intake Oral 1742 ml IV Total 900 ml Blood Product 300 ml Other 20 ml Output Urine Total 3525 ml # Voids 1 # Bowel Movements 1 Problem\Assessment\Plan Problems/Diagnosis: (1) Common variable immunodeficiency (CVID) Assessment & Plan: with pancytopenia. goal is to fix this first, before subjecting himto renal biopsy. at this time, heneeds to be hydrated. He needs epogen. check iron profile. will give a dose of neupogen. Arranging a biospy before saturday is going to be very difficult. Also, he is responding to the iv frluids so far with some improvement in in renal function. (2) Acute kidney injury Assessment & Plan: this time, the hypercalcemia is causing him to have diuretic effect, and he is definitely appearing volume depleted at this time. will continue hydsration and hang 1 liter wide open first and continue fluids at 150 cc pe rhour. (3) Pancytopenia Assessment & Plan: as above. (4) Hypercalcemia Assessment & Plan: s/p pamidronaate. will continue iv hydration. SHAYNA MIRANDA III DO Dec 25, 2024 17:54
== END 2024-12-25 12:15 | disposition home or self-care (01) | DRG 809 ==
LOC: ER 00:32 → ED HOLD 00:57 → EDBEDREQ 02:25 → ORTHO 4S 03:05
PROVIDERS: ADMIT Internal Medicine; ATTEND Family Medicine
PROC: 30233N1 Transfusion of Nonautologous Red Blood Cells into Peripheral Vein, Percutaneous Approach (ICD-10-PCS; principal; 2024-12-25)
DX: D61.818 Other pancytopenia (principal); D83.9 Common variable immunodeficiency, unspecified; N17.9 Acute kidney failure, unspecified; N18.4 Chronic kidney disease, stage 4 (severe); I12.9 Hypertensive chronic kidney disease with stage 1 through stage 4 chronic kidney disease, or unspecified chronic kidney disease; R59.1 Generalized enlarged lymph nodes; D73.1 Hypersplenism; E83.52 Hypercalcemia; Z82.5 Family history of asthma and other chronic lower respiratory diseases; Z83.3 Family history of diabetes mellitus; Z88.1 Allergy status to other antibiotic agents; Z79.899 Other long term (current) drug therapy
CPT/HCPCS: 36415; 36430; 70250; 80048; 80053; 81001; 82164; 82272; 82306; 82330; 82570; 82728; 83540; 83550; 83615; 83735; 83880; 83930; 83935; 83970; 84100; 84155; 84165; 84300; 84484; 84550; 85007; 85025; 85027; 85045; 85610; 85651; 85730; 86038; 86060; 86160; 86256; 86644; 86703; 86870; 86880; 86885; 86900; 86901; 86902; 86905; 86922; 86945; 87081; 93005; 94640; 94760; 99285; A6449; G0378; J1442; J2430; J7030; J7040; J7050; J7120; J7512; P9016